=== PATIENT | female | born 1945 | race Caucasian/White ===

== ENCOUNTER → 2016-09-13 | Outpatient (CLI) | payer MEDICARE ==
[~2016-09-13] MED LIST: CALC-709 PO; DILT180C66 PO; DOCU-118 PO; ELDERBERRY PO; ESTR0.5T15 PO; FISH1CAP29 PO; HYDR-2164 PO; LEVO88TA41 PO; MULT-806 PO; OMEP20TA11 PO; POTA10CA29 PO; PROM-51 PO; PSYL0.5220 PO; SENN8.6T54 PO
== END ==
LOC: WC.BC 11:00
DX: Z12.31 Encounter for screening mammogram for malignant neoplasm of breast (principal); N64.59 Other signs and symptoms in breast
CPT/HCPCS: 77063; G0202

== ENCOUNTER 2017-06-28 22:10 | Inpatient (IN) ==
--- OUTSIDE RECORDS SUMMARY | 2017-06-28 22:18 | External Medical Summary | Continuity of Care Document ---
:1945 Author Organization [facility] Address [address] [place], [place] [id number] Phone Care Team Providers Name Role Phone Teck DO, Louis Unavailable Unavailable Allergies, Adverse Reactions, Alerts Substance Reaction Severity Status ciprofloxacin Unknown Active CIPROFLOXACIN HCL Unknown Active Penicillins Unknown Active Vovobtk-Epp-Ehe Reductase Inhibitors Unknown Active Sulfa (Sulfonamide Antibiotics) Unknown Active erythromycin base Unknown Active Tetracyclines Unknown Active Medications Medication Instructions Dosage Effective Status Comments Dates (start - stop) aspirin 81 mg take 1 tablet by 81 MG - Active tablet,delayed release oral route every day hydrochlorothiazide 25 take 1 tablet by 25 MG - Active mg tablet oral route every day FISH OIL ORAL - Active diltiazem ER (XR/XT) 180 take 1 capsule by 180 MG - Active mg capsule,extended oral route every release,controlled day Claritin 10 mg tablet take 1 tablet by 10 MG - Active oral route every day levothyroxine 88 mcg take 1 tablet by 88 MCG - Active tablet oral route every day Zantac 150 mg tablet take 1 tablet by 150 MG - Active oral route 2 times every day Vitamin D3 400 unit - Active tablet Tylenol 325 mg tablet take 1 tablet by - Active oral route every 4 hours as needed Surfak 240 mg capsule take 1 capsule by 240 MG - Active oral route every day as needed Senokot 8.6 mg tablet take 2 tablet by Not Available - Active oral route every day as needed for constipation Probiotic 10 billion - Active cell capsule potassium chloride ER 10 take 2 capsule by - Active mEq capsule,extended oral route every release day with food multivitamin tablet take 1 tablet by Not Available - Active oral route every day with food Metamucil 0.52 gram - Active capsule Problems Condition Effective Dates (start - stop) Clinical Status Encounter for other preprocedural - examination Essential (primary) hypertension Other Ovarian Cyst, Right Side Vaginal Discharge or Lesion Other Ovarian Cyst, Right Side Other Ovarian Cyst, Right Side Right lower quadrant abdominal swelling, mass and lump Hypertension - Active Arthritis Unspecified Active Diverticulitis Active GERD Active Hyperlipidemia Active Goiter Active Irritable Bowel Syndrome Active Migraines Active Endometriosis Active Procedures Procedure Date Unknown Results Test Name Date and Time Measure Units Reference Range Abnormal Flag Comments Unknown Advance Directives Directive Yes / No Effective Date File Name Unknown Encounters Encounter Practice Location Reason(s) Diagnoses Date Provider Care Team Description For Visit [facility] Right lower [place] Referring In [facility] -2016 [facility]. Provider: Arleen JAMES, abdominal [address], swelling, mass [place], [place], [place], [place], and lump [facility] [address] [id number], [place], [facility] [id number] Center tel:[phone] , [address] [address] tel:[phone] [address], [id number] [place], [address]. tel:[phone] Ivan Beck Other Ovarian Sobbing Referring In Women Cyst, Right -2016 [place]. Provider: Arleen JAMES, Side [address], Medical [place], [place], [place], Center [address] [id number], [facility] [address], tel:[phone], [place], [address] [place], [address]. [place], tel:[phone], [id number] . tel: [phone] Ivan Beck Sobbing In Women [place]. Arleen JAMES, [address], [place], [place], [place] [id number], [facility] Suite tel:[phone], [address] [place], [address], [place]. tel: [phone] Ivan Beck Other Ovarian [place] In Women Cyst, Right -2016 [place]. Arleen JAMES, Side [address], [place], [place], Center [id number], [facility] Suite tel:[phone], [address] [place], [address], . tel: [phone] Ivan Beck Encounter for Sobbing Referring In Women other -2016 [place]. Provider: Arleen JAMES, preprocedural [address], examination Medical [place], [place], Center [id number], [address], Medical Suite Center , tel:[phone], [place], [address] [place], [address]. [place], tel:[phone], [id number] [place]. tel:[phone] Associates [place] Other Ovarian Oct-20 [place] Referring In Womens Cyst, Right -2017 [place]. Provider: Health JACOB, SideVaginal [address], Discharge or Medical [place], [place], [place] Center [id number], [address], Medical Suite Center , tel:[phone], [place], [address] [place], [address]. [place], tel:[phone], [id number] [place]. tel:[phone] Ivan Beck Oct-20 [place] In Womens -2017 [place]. 700 Arleen JAMES, Medical [address], Center [place], [place], , [facility] , 120, [place], tel:[phone] [place], [id number] , [place]. tel:[phone] Ivan Beck Essential Oct-17 [place] In Womens (primary) -2017 [place]. Arleen JAMES, hypertension [address], [place], [place], Center [id number], Drive, [place] Suite tel:[phone], [address] [place], [address], [place]. tel:[phone] Family History Family Member Diagnosis Age At Onset No family history of Thyroid Disorder Father Cardiovascular Disease No family history of Osteoporosis Sister Hypertension Sister Diabetes No family history of Lung Disease Mother Stroke Father Stroke No family history of Breast Cancer No family history of Epilepsy No family history of Colon Cancer Brother Cardiovascular Disease Father Hypertension No family history of Ovarian Cancer Brother Hypertension Brother Diabetes Mother Hypertension No family history of Kidney Disease Immunizations Vaccine Date Status Comments Unknown Payers Payer name Insurance type Covered constitution party ID Authorization(s) [employer] ([employer]) Medicare ALWAYS CI [id number] PRIM Social History Type Description Quantity Date Captured Alcohol Use Details No Caffeine Use Details Unknown Tobacco Use Status Unknown Smoking Status Never smoker Vital Signs Date / Height Weight BMI Pulse Blood Temperature Respiratory Body Head BMI Time: Rate Pressure Rate Surface Circumference percentile Area Unknown Chief Complaint And Reason For Visit Unknown Chief Complaint And Reason For Visit Reason For Referral Reason For Referral Unknown Plan Of Care Date Type Action Status Unknown. Date Type Problem Goal Intervention Status Start Date Unknown. History Of Present Illness Encounter Date Complaint History Of Present Illness This patient has no known history of present illness Functional Status Encounter Date Functional Assessment Cognitive Assessment Unknown Medications Administered Medication Instructions Dosage Effective Dates (start - stop) Status Comments Drug Treatment Unknown Instructions Date Instruction Additional Information Unknown
--- NOTE | 2017-06-28 22:50 | Emergency Department Report ---
Nausea/Vomiting/Diarrhea HPI - General Chief complaint: Nausea/Vomiting/Diarrhea <Mario Harrell 06/29/17 00:57> Stated complaint: Nausea <Mario Harrell 06/29/17 00:57> Time Seen by Provider: 06/28/17 22:25 <Mario Harrell 06/29/17 00:57> Source: patient <HarryKandace Marcela Orr 06/28/17 22:51> Mode of arrival: ambulatory <Kandace Mcdonald 06/28/17 22:51> Limitations: no limitations <Kandace Mcdonald 06/28/17 22:51> - History of Present Illness HPI Narrative: Pt presents with a complaint of nausea since her release from the hospital 3 days ago. Pt Had an ovary removed 5 days ago and was released from the hospital 3 days ago. Pt reports she had a small runny BM 3 days ago and started vomiting today. She c/o being bloated with a decreased appetite and took a promethazine today without relief. Pt is concerned she may be dehydrated and came to the ER. <Kandace Mcdonald 06/28/17 22:51> MD complaint: nausea, vomiting <Kandace Mcdonald 06/28/17 22:51> Onset (ago): day(s) <Kandace Mcdonald 06/28/17 22:51> Description of Vomiting: watery, bilious <Kandace Mcdonald 06/28/17 22:51> Description of Diarrhea: water <Kandace Mcdonald 06/28/17 22:51> Location of pain: diffuse <Kandace Mcdonald 06/28/17 22:51> Severity: mild <Kandace Mcdonald 06/28/17 22:51> Quality: cramping <Kandace Mcdonald 06/28/17 22:51> Relieving factors: none <Kandace Mcdonald 06/28/17 22:51> Exacerbating factors: eating <Kandace Mcdonald 06/28/17 22:51> Associated symptoms: denies other symptoms <Kandace Mcdonald 06/28/17 22: 51> - Related Data Home Medications Medication Instructions Recorded Confirmed Levothyroxine Sodium 88 mcg PO ACB #0 04/13/13 06/28/17 dilTIAZem HCl [Cardizem Cd] 180 mg PO HS #0 04/13/13 06/28/17 hydroCHLOROthiazide 25 mg PO DAILY #0 04/13/13 06/28/17 [Hydrochlorothiazide] Cholecalciferol (Vitamin D3) 1,000 units PO DAILY 12/08/16 06/28/17 [Vitamin D3] Loratadine [Claritin] 10 mg PO ACB 12/08/16 06/28/17 Multi-Vitamin Plain [Theragran] 1 tab PO DAILY 12/08/16 06/28/17 Gibson-3/Dha/Epa/Fish Oil [Fish Oil 1 each PO DAILY 12/08/16 06/28/17 1,000 mg Softgel] Potassium Chloride 2 tab PO TID 12/08/16 06/28/17 raNITIdine HCl [Zantac 75] 150 mg PO DAILY 12/08/16 06/28/17 Acetaminophen [Tylenol] 500 mg PO PRN PRN 05/24/17 06/28/17 Aspirin [Adult Aspirin Regimen] 81 mg PO DAILY 06/28/17 06/28/17 Lactobacillus Acidophilus 1 each PO DAILY 06/28/17 06/28/17 [Probiotic] Oxycodone HCl 5 - 10 mg PO Q4H 06/28/17 06/28/17 Promethazine HCl 25 mg PO PRN PRN 06/28/17 06/28/17 Previous Rx's Medication Instructions Recorded Ibuprofen [Motrin] 1 tab PO Q4H PRN #30 tab 05/24/17 <aMrio Harrell 06/29/17 00:57> Allergies Allergy/AdvReac Type Severity Reaction Status Date / Time ciprofloxacin Allergy RASH Verified 06/28/17 22:34 Penicillins Allergy RASH Verified 06/28/17 22:34 Jaiadlw-Rgs-Bxz Reductase Allergy MUSCLE Verified 06/28/17 22:34 Inhibitor FATIGUE Sulfa (Sulfonamide Allergy RASH Verified 06/28/17 22:34 Antibiotics) tetracycline Allergy RASH Verified 06/28/17 22:34 <Mario Harrell 06/29/17 00:57> Review of Systems All systems: reviewed and negative except as stated <Kandace Mcdonald 03/07 22:51> Constitutional: Reports: as per HPI <Kandace Mcdonald 06/28/17 22:51> Gastrointestinal: Reports: as per HPI <Kandace Mcdonald 06/28/17 22:51> Musculoskeletal: Reports: as per HPI <Kandace Mcdonald 06/28/17 22:51> [facility] Patient Stated Medical History Migraine Yes Cataracts Yes Macular Degeneration Yes Hypertension Yes Sleep Apnea No Gastroesophageal Reflux Yes: controlled with meds Disease Hiatal Hernia Yes Hx Incontinence Yes: STRESS Osteoarthritis Yes Anesthesia Reactions No Blood Transfusions No Chemotherapy No Malignant Hyperthermia No Other No Endometriosis Yes Ovarian Cysts Yes Now No <Julio CesarMario Carlos - 06/29/17 00:57> - Social History Smoking status: Never smoker <Kandace Mcdonald 06/28/17 22:51> Physical Exam - Limitations Limitations: no limitations <Kandace Mcdonald 06/28/17 22:51> - General General appearance: alert, in no apparent distress <Kandace Mcdonald 06/28 22:51> - Normal Exams: Head:: Normocephalic without trauma <Kandace Mcdonald 06/28/17 22:51> Chest/Respirations:: Clear all hernandez, with good airflow <Kandace Mcdonald 06/28/17 22:51> Cardiovascular:: Regular rate and rhythm, without murmur or gallop, Pulses 2+ all extremities, capillary refill, <2 seconds all extremities <Kandace Mcdonald 06/28/17 22:51> Musculoskeletal:: No tenderness, or deformity noted, good range of motion, all extremities <Kandace Mcdonald 06/28/17 22:51> Integumentary:: No rashes <Kandace Mcdonald 06/28/17 22:51> Neurological:: Patient is alert, and oriented, cranial nerves, motor/sensory/ cerebellar, exams w/o gross deficits, to observation <Kandace Mcdonald 03/07 22:51> Psychiatric:: Patient exhibits, appropriate attention, emotion and affect < Kandace Mcdonald 06/28/17 22:51> - Abdominal Exam Abdominal exam: Present: distention, tenderness, hypoactive bowel sounds < Kandace Mcdonald - 06/28/17 22:51> Course Vital Signs Temperature 97.7 F 06/28/17 22:15 Pulse Rate 95 06/28/17 22:15 Respiratory Rate 16 06/28/17 22:15 Blood Pressure 159/91 H 06/28/17 22:15 Pulse Oximetry 97 06/28/17 22:15 Temperature 97.7 F 06/28/17 22:15 Pulse Rate 86 06/29/17 00:30 Respiratory Rate 16 06/28/17 22:15 Blood Pressure 143/76 H 06/29/17 00:30 Pulse Oximetry 92 06/29/17 00:30 <Mario Harrell - 06/29/17 00:57> Vital Signs Temperature 97.7 F 06/28/17 22:15 Pulse Rate 95 06/28/17 22:15 Respiratory Rate 16 06/28/17 22:15 Blood Pressure 159/91 H 06/28/17 22:15 Pulse Oximetry 97 06/28/17 22:15 Temperature 97.7 F 06/28/17 22:15 Pulse Rate 86 06/29/17 00:30 Respiratory Rate 16 06/28/17 22:15 Blood Pressure 143/76 H 06/29/17 00:30 Pulse Oximetry 92 06/29/17 00:30 <Kandace Mcdonald 06/28/17 23:49> Nausea/Vomiting/Diarrhea - MDM Narrative Medical decision making narrative: Given normal saline bolus. CBC CMP ordered. White count slightly elevated at 12 with 82% neutrophils. Hematocrit was appropriate. CMP was appropriate. CT abdomen was obtained and showed a 6 x 4 x 4.5 cm pelvic hematoma with "ileus versus evolving distal small bowel obstruction". I spoke with Dr. Hopper who agreed to accept admission of the patient for observation. She'll be placed on surgical unit. Nothing by mouth. IV of normal saline at 100 ml/hr with morphine and Zofran when necessary. I discussed this with the patient and with her . They're both aware. <Mario Harrell 06/29/17 00:57> - Differential Diagnosis Likely: traveler's diarrhea, food poisoning, gastroenteritis, dehydration (ileus , constipation) <Kandace Mcdonald 06/28/17 22:51> - Medical Records Attestation: I reviewed the patient's medical records. <Mario Harrell Carlos - 06/29 00:57> - Lab Data Attestation: I reviewed the patient's lab results. <Mario Harrell Carlos - 06/29/17 00:57> Result diagrams: 06/28/17 23:00 06/28/17 23:00 <Mario Harrell - 06/29/17 00:57> Lab Results 06/28/17 06/28/17 06/29/17 Range/Units 23:00 23:00 00:00 WBC 13.2 H (4.5-11.0) T/MM3 RBC 4.79 (4.00-5.20) M/MM3 Hgb 15.0 (12-16) GM/DL Hct 43.2 (36-46) % MCV 90.2 (80-100) UM3 MCH 31.3 (26-34) UUG MCHC 34.7 (31-37) GM/DL RDW Std Deviation 41.3 (36.9-50.2) FL Plt Count 246 (130-400) T/MM3 MPV 11.3 (9.4-12.4) UM3 Immature Gran % (Auto) 0.8 H (0.0-0.5) % Neut % (Auto) 81.2 H (33-66) % Lymph % (Auto) 10.1 L (23-45) % Mccormick % (Auto) 5.0 (0-9.0) % Eos % (Auto) 2.6 (0-4) % Baso % (Auto) 0.3 (0-2) % Neut # (Auto) 10.7 H (1.8-7.7) T/MM3 Lymph # (Auto) 1.3 (1-4.8) T/MM3 Mccormick # (Auto) 0.7 (0-0.8) T/MM3 Eos # (Auto) 0.3 (0-0.5) T/MM3 Baso # (Auto) 0.0 (0-0.2) T/MM3 Abs Immat Gran (auto) 0.11 H (0.00-0.03) T/MM3 Turbidity < 20 (0-20) Sodium 135 (134-144) MEQ/L Potassium 4.3 (3.6-5) MEQ/L Chloride 98 (98-107) MEQ/L Carbon Dioxide 24 (22-30) MEQ/L Anion Gap 13 (5-15) MEQ/L BUN 10.0 (7-17) MG/DL Creatinine 0.6 L (0.7-1.2) MG/DL GFR Calculation 98 BUN/Creatinine Ratio 17 (6-26) RATIO Glucose 159 H (65-110) MG/DL Calculated Osmolality 262 (261-280) MOSM/KG Calcium 9.4 (8.4-10.2) MG/DL Total Bilirubin 1.00 (0.20-1.30) MG/DL Icterus Index < 2 (0-7) AST 50 H (14-36) U/L ALT 41 (9-52) U/L Alkaline Phosphatase 81 (38-126) U/L Total Protein 7.8 (6.3-8.2) G/DL Albumin 4.4 (3.5-5.0) G/DL Globulin 3.4 (2.4-3.6) G/DL Albumin/Globulin Ratio 1.3 (1.1-2.2) RATIO Specimen Hemolysis 68 H (0-25) Ur Collection Type Urine, clean catch Urine Color Yellow (YELLOW) Urine Clarity Clear Urine pH 7.0 (5.0-8.0) Ur Specific [place] 1.010 L (1.015-1.025) Urine Protein 2+ A (NEGATIVE) Urine Glucose (UA) Negative (NEGATIVE) Urine Ketones 2+ A (NEGATIVE) Urine Occult Blood Trace-intact (NEGATIVE) Urine Nitrate Negative (NEGATIVE) Urine Bilirubin 1+ A (NEGATIVE) Urine Urobilinogen 0.2 (NORMAL) EU/DL Ur Leukocyte Esterase Negative (NEGATIVE) Urine RBC 0-1 (0-3) /HPF Urine WBC 1-3 (0-5) /HPF Amorphous Sediment Few Urine Bacteria None seen (NEGATIVE) Ur Culture Indicated? Cult not indicated <Mario Harrell E - 06/29/17 00:57> Lab Results 06/28/17 06/28/17 06/29/17 Range/Units 23:00 23:00 00:00 WBC 13.2 H (4.5-11.0) T/MM3 RBC 4.79 (4.00-5.20) M/MM3 Hgb 15.0 (12-16) GM/DL Hct 43.2 (36-46) % MCV 90.2 (80-100) UM3 MCH 31.3 (26-34) UUG MCHC 34.7 (31-37) GM/DL RDW Std Deviation 41.3 (36.9-50.2) FL Plt Count 246 (130-400) T/MM3 MPV 11.3 (9.4-12.4) UM3 Immature Gran % (Auto) 0.8 H (0.0-0.5) % Neut % (Auto) 81.2 H (33-66) % Lymph % (Auto) 10.1 L (23-45) % Mccormick % (Auto) 5.0 (0-9.0) % Eos % (Auto) 2.6 (0-4) % Baso % (Auto) 0.3 (0-2) % Neut # (Auto) 10.7 H (1.8-7.7) T/MM3 Lymph # (Auto) 1.3 (1-4.8) T/MM3 Mccormick # (Auto) 0.7 (0-0.8) T/MM3 Eos # (Auto) 0.3 (0-0.5) T/MM3 Baso # (Auto) 0.0 (0-0.2) T/MM3 Abs Immat Gran (auto) 0.11 H (0.00-0.03) T/MM3 Turbidity < 20 (0-20) Sodium 135 (134-144) MEQ/L Potassium 4.3 (3.6-5) MEQ/L Chloride 98 (98-107) MEQ/L Carbon Dioxide 24 (22-30) MEQ/L Anion Gap 13 (5-15) MEQ/L BUN 10.0 (7-17) MG/DL Creatinine 0.6 L (0.7-1.2) MG/DL GFR Calculation 98 BUN/Creatinine Ratio 17 (6-26) RATIO Glucose 159 H (65-110) MG/DL Calculated Osmolality 262 (261-280) MOSM/KG Calcium 9.4 (8.4-10.2) MG/DL Total Bilirubin 1.00 (0.20-1.30) MG/DL Icterus Index < 2 (0-7) AST 50 H (14-36) U/L ALT 41 (9-52) U/L Alkaline Phosphatase 81 (38-126) U/L Total Protein 7.8 (6.3-8.2) G/DL Albumin 4.4 (3.5-5.0) G/DL Globulin 3.4 (2.4-3.6) G/DL Albumin/Globulin Ratio 1.3 (1.1-2.2) RATIO Specimen Hemolysis 68 H (0-25) Ur Collection Type Urine, clean catch Urine Color Yellow (YELLOW) Urine Clarity Clear Urine pH 7.0 (5.0-8.0) Ur Specific [place] 1.010 L (1.015-1.025) Urine Protein 2+ A (NEGATIVE) Urine Glucose (UA) Negative (NEGATIVE) Urine Ketones 2+ A (NEGATIVE) Urine Occult Blood Trace-intact (NEGATIVE) Urine Nitrate Negative (NEGATIVE) Urine Bilirubin 1+ A (NEGATIVE) Urine Urobilinogen 0.2 (NORMAL) EU/DL Ur Leukocyte Esterase Negative (NEGATIVE) Urine RBC 0-1 (0-3) /HPF Urine WBC 1-3 (0-5) /HPF Amorphous Sediment Few Urine Bacteria None seen (NEGATIVE) Ur Culture Indicated? Cult not indicated <Kandace Mcdonald - 06/28/17 23:49> - Radiology Data Attestation: I reviewed the patient's radiology results. <Mario Harrell 04/06 00:57> Disposition Clinical Impression: Postoperative ileus <Mario Harrell 06/29/17 00:57> Disposition: 02 To [facility] <Mario Harrell 06/29/17 00:57> Condition: Stable <Mario Harrell 06/29/17 00:57> Instructions: <Mario Harrell 06/29/17 00:57> Prescriptions: No Action dilTIAZem HCl [Cardizem Cd] 180 mg PO HS #0 hydroCHLOROthiazide [Hydrochlorothiazide] 25 mg PO DAILY #0 raNITIdine HCl [Zantac 75] 150 mg PO DAILY Cholecalciferol (Vitamin D3) [Vitamin D3] 1,000 units PO DAILY Potassium Chloride 2 tab PO TID Ibuprofen [Motrin] 1 tab PO Q4H PRN #30 tab PRN Reason: Pain Aspirin [Adult Aspirin Regimen] 81 mg PO DAILY Oxycodone HCl 5 - 10 mg PO Q4H Levothyroxine Sodium 88 mcg PO ACB #0 Loratadine [Claritin] 10 mg PO ACB Gibson-3/Dha/Epa/Fish Oil [Fish Oil 1,000 mg Softgel] 1 each PO DAILY Multi-Vitamin Plain [Theragran] 1 tab PO DAILY Acetaminophen [Tylenol] 500 mg PO PRN PRN PRN Reason: Pain Lactobacillus Acidophilus [Probiotic] 1 each PO DAILY Promethazine HCl 25 mg PO PRN PRN PRN Reason: Nausea &/Or Vomiting <Mario Harrell 06/29/17 00:57> Referrals: Louis Garcia DO [Family Provider] - <Mario Harrell 06/29/17 00: 57> Forms: <Mario Harrell 06/29/17 00:57> Time of Disposition: 00:57 <Mario Harrell 06/29/17 00:57> - Seen By: physician <Mario Harrell 06/29/17 00:57>
[2017-06-28] MEDS: SALINE FLUSH 10ml SYRINGE IVF PRN (23:07)
[2017-06-28] MEDS ORDERED: IOHEXOL 300mg/ml 100ml INJECTION ONE (23:30)
[2017-06-28] MEDS ORDERED: SALINE FLUSH 10ml SYRINGE ONE (23:30)
[2017-06-28] MEDS ORDERED: NS 100 ML ONE (23:30)
[2017-06-29] MEDS ORDERED: MORPHINE SULFATE 2mg INJECTION IVP PRN (00:52)
[2017-06-29] MEDS: NS 1,000 ML IV SCH ×3 (02:02→23:32)
[2017-06-29] MEDS: SALINE FLUSH 10ml SYRINGE IVF PRN (02:02)
[2017-06-29] MEDS: ONDANSETRON 4 MG/2 ML INJECTION IVP PRN ×3 (02:05→21:47)
--- NOTE | 2017-06-29 07:57 | CT Scan Report ---
Indication: abd bloating, no BM, post op nausea vomiting PROCEDURE: CT abdomen pelvis w con: Encounter: Initial Comparison: None Technique: Axial CT images were performed through the abdomen and pelvis after the administration of intravenous contrast. Coronal and sagittal two-dimensional reformats. Automated Exposure Control and Iterative Reconstruction dose reducing techniques were utilized. Contrast: Omnipaque 300 89.1 mL Findings: Atelectasis in both lung bases. Small probable cysts in the left and right lobes of the liver. No enhancing liver mass or bile duct dilatation. The gallbladder is surgically absent. The spleen, pancreas, adrenal glands and kidneys are within normal limits. The stomach and small bowel are fluid-filled and distended. No adenopathy. Surgical staple line seen in the lower abdomen and pelvis midline. There is small amount of free pelvic fluid. The colon is decompressed distally. Terminal ileum and several small bowel loops are decompressed in the pelvis which appears to be the site of transition. There is a swirling appearance of the mesenteric vessels seen on the coronal plane images. No pneumatosis identified. Bone windows show no acute findings. There is a 5 to 6 cm phlegmonous collection of fluid and gas in the pelvis possibly related to the recent surgery. A few tiny foci of free air in the pelvis probably related to the surgery. Impression: 1. Acute high-grade or complete small bowel obstruction with a swirling appearance to the mesentery suggesting internal hernia or volvulus. Emergent surgical consultation is recommended. 2. Phlegmon versus hematoma versus developing abscess in the deep pelvis. There is a preliminary report by [facility]. .
--- NOTE | 2017-06-29 10:42 | OB/GYN Progress Note ---
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 Voiding: voiding Nausea or Vomiting: No Ambulating: Yes Subjective Comments: Patient was admitted overnight for nausea and possible ileus vs early bowel obstruction. Her last BM was 3 days ago, but she's passing flatus. - Objective Vital Signs: Vital Signs Temp 97.9 F 06/29/17 08:35 Pulse 87 06/29/17 08:35 Resp 18 06/29/17 08:35 BP 134/78 06/29/17 08:35 Pulse Ox 95 06/29/17 08:35 Urine Output: good General: alert and oriented Abdomen: non-tender, soft, non-distended Abdomen: Bowel sounds present. Incision: normal, clean, dry, intact Incision: [place] and ecchymosis present. Extremities: non-tender Laboratory Results: 06/28/17 23:00 06/28/17 23:00 Labs: UA Ur Collection Type Urine, clean catch 06/29/17 00:00 Urine Color Yellow (YELLOW) 06/29/17 00:00 Urine pH 7.0 (5.0-8.0) 06/29/17 00:00 Ur Specific [place] 1.010 (1.015-1.025) L 06/29/17 00:00 Urine Protein 2+ (NEGATIVE) A 06/29/17 00:00 Urine Glucose (UA) Negative (NEGATIVE) 06/29/17 00:00 Urine Ketones 2+ (NEGATIVE) A 06/29/17 00:00 Urine Occult Blood Trace-intact (NEGATIVE) 06/29/17 00:00 Urine Nitrate Negative (NEGATIVE) 06/29/17 00:00 Urine Bilirubin 1+ (NEGATIVE) A 06/29/17 00:00 Urine Urobilinogen 0.2 EU/DL (NORMAL) 06/29/17 00:00 Ur Leukocyte Esterase Negative (NEGATIVE) 06/29/17 00:00 - Assessment and Plan s/p Laparotomy for RSO and lysis of dense bowel adhesions. Her CT this AM was read as an acute bowel obstruction with possible volvulus and possible abscess. Clinically, she does not fit this picture. She is afebile , abdomen is nondistended with bowel sounds, and she's passing flatus. I called and spoke with Dr. Shin. He agreed that we should start with clear liquids today.
[2017-06-29] MEDS ORDERED: METOCLOPRAMIDE 10mg/2ml INJECTION IVP PRN (23:47)
[2017-06-30] MEDS: NS 1,000 ML IV SCH ×2 (09:59→23:15)
--- NOTE | 2017-06-30 10:55 | OB/GYN Progress Note ---
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 Had a BM x 2 since in hospital very small. Pt is very anxious about current condition. - Objective Vital signs: Temperature 96.4 F L 06/30/17 07:24 Pulse Rate 91 06/30/17 07:24 Respiratory Rate 16 06/30/17 07:24 Blood Pressure 147/85 H 06/30/17 07:24 Pulse Oximetry 94 06/30/17 07:24 Urine Output: good General: alert and oriented Cardiovascular: regular rate,rhythm Respiratory: non-labored Respiratory Auscultation: clear bilaterally Abdomen: non-tender, distended Abdomen: Bowel sounds present but slow, No high pitch sounds Incision: normal Extremities: non-tender Laboratory Result: 06/28/17 23:00 06/28/17 23:00 Labs: UA Ur Collection Type Urine, clean catch 06/29/17 00:00 Urine Color Yellow (YELLOW) 06/29/17 00:00 Urine pH 7.0 (5.0-8.0) 06/29/17 00:00 Ur Specific [place] 1.010 (1.015-1.025) L 06/29/17 00:00 Urine Protein 2+ (NEGATIVE) A 06/29/17 00:00 Urine Glucose (UA) Negative (NEGATIVE) 06/29/17 00:00 Urine Ketones 2+ (NEGATIVE) A 06/29/17 00:00 Urine Occult Blood Trace-intact (NEGATIVE) 06/29/17 00:00 Urine Nitrate Negative (NEGATIVE) 06/29/17 00:00 Urine Bilirubin 1+ (NEGATIVE) A 06/29/17 00:00 Urine Urobilinogen 0.2 EU/DL (NORMAL) 06/29/17 00:00 Ur Leukocyte Esterase Negative (NEGATIVE) 06/29/17 00:00 - Assessment and Plan (1) Postoperative ileus Assessment and Plan: Minimal Improvement since admission. Will repeat Lab CBC and CMP today(WBC and LFT elevated). Discordant report from [facility] and and in house radiology report Ileus vs Early Small bowel obstruction compared to High grade small bowel obstruction. Will get general surgery consult secondary to pt anxiety and slow improvement. Clinical suspicion is for Ileus and not bowel obstruction.
[2017-06-30] MEDS: LEVOTHYROXINE 88 MCG TABLET PO SCH (11:05)
--- NOTE | 2017-06-30 12:33 | XRay Report ---
Indication: ileus versus SBO PROCEDURE: XR abdomen 2V: Encounter: Initial Comparison: CT dated June 28, 2017 Findings: Small bowel dilatation has improved from the comparison study with multiple air-fluid levels remaining. Small bowel loops are mildly enlarged up to 4.3 cm in diameter. Colonic gas is decreased overall from the medical photographer image of the comparison CT. No free air. Surgical skin joel again noted. Impression: Interval decrease in distention of small bowel could represent an improving partial obstruction. .
[2017-06-30] MEDS: ONDANSETRON 4 MG/2 ML INJECTION IVP PRN ×3 (12:36→20:44)
--- NOTE | 2017-06-30 13:20 | Consultation ---
DATE OF CONSULTATION 06/30/2017 FINDINGS Mrs. Douglass is a pleasant 71-year-old female whom I was asked to see today as a new patient/consultation as a result of her history for nausea, vomiting, abdominal distention, and probable ileus which she had developed following exploratory laparotomy and oophorectomy. Patient states that about a week ago she had undergone exploratory laparotomy with lysis of adhesions and oophorectomy at [facility] in [place] by Dr. Shin. Patient states that she did stay in the hospital for a couple of days and was subsequently discharged. Patient states that unfortunately shortly after her discharge she began to notice that her "belly was swelling." She denied much in the way of any element of significant abdominal pain or discomfort but stated that she did become nauseated in nature. Patient states that she then began to experience a fair amount of emesis. She presented to our ER facility and was subsequently admitted to our hospital for further care as a result of a suspected ileus. Patient states that she continues to be somewhat nauseated. She states that she continues intermittently to "spit up bile-like material." She, however, denies significant emesis like she had initially. Additionally, upon questioning the patient she denies any element of significant abdominal pain. PAST MEDICAL HISTORY, PAST SURGICAL HISTORY, MEDICATIONS, ALLERGIES, SOCIAL HISTORY, FAMILY HISTORY, REVIEW OF SYSTEMS Performed by my nurse practitioner, Carlos Shannon APRN. PHYSICAL EXAM GENERAL: Mrs. Douglass is a 71-year-old female who this morning did not appear to be in acute distress. VITAL SIGNS: Temperature 96.4, pulse 91, respirations 16, blood pressure 147/85, SAO2 94% on room air. HEENT: Normocephalic. Pupils are equally round and react to light and accommodation. NECK: Supple without lymphadenopathy. CHEST: Clear to auscultation bilaterally. HEART: Regular rate and rhythm. Normal S1 and S2 without gallops, murmurs or clicks. ABDOMEN: Visualization of the abdomen does reveal a prior midline incision containing joel from the umbilicus down to the suprapubic region. There is a component of some ecchymosis present along the incision mostly within the suprapubic region. There is no evidence for erythema or drainage from her prior midline incision. Additionally, upon visualization her abdomen it does appear somewhat distended. Palpation of the abdomen reveals the abdomen to be somewhat firm. However, there is no evidence for guarding or rebound. Patient did not display any element of tenderness upon palpation. EXTREMITIES: Without clubbing, cyanosis, or edema. NEURO: Cranial nerves II-XII grossly intact. Patient is without focal motor or sensory deficits. LABORATORY/RADIOGRAPHIC EVALUATION The patient had a CBC on June 28 and her white count was slightly elevated at that time at 13.2. Hemoglobin is normal at 15.0. CMP was obtained and found to be essentially within normal limits. AST was elevated slightly at 50. Glucose was slightly elevated at 159. The patient did have a CT scan of her abdomen and pelvis upon admission. One can see fairly dilated loops of small bowel. Colon contained some air but did not appear significantly dilated in nature. There was a component of some inflammatory changes noted within the pelvis most likely a result of her prior surgery. Findings were consistent with that of an acute high-grade or complete small bowel obstruction with "swirling appearance" of the mesentery suggesting internal hernia or volvulus. ASSESSMENT 71-year-old female one week status post exploratory laparotomy, lysis of adhesions, oophorectomy. Patient with likely postop ileus. Patient does not have an acute surgical abdomen noted upon physical examination. PLAN Will go ahead and repeat KUB and upright today. Will repeat lab today to make sure the patient does not have increasing leukocytosis. Will evaluate her lab and radiographic results. May proceed later today with Gastrografin small bowel follow-through to rule out complete small bowel obstruction with more certainty. Will continue to follow along closely in the patient's care. KINSEY
--- NOTE | 2017-06-30 15:45 | General Surgery Consult Note ---
Consult date: 06/30/17 Attending Physician: Saulo Hopper DO Reason for consult: abdominal pain PFSH HTN GERD Hiatal Hernia Mcular Degeneration Endometriosis Right ovarian cyst Surgical History: laparoscopy lysis of adhesions and RSO 06/2017 Family History: non-contributory - Social History Smoking status: Never smoker Alcohol intake frequency: does not drink Medications Home Medications Medication Instructions Recorded Confirmed Type Levothyroxine Sodium 88 mcg PO ACB #0 04/13/13 06/28/17 History dilTIAZem HCl [Cardizem Cd] 180 mg PO HS #0 04/13/13 06/28/17 History hydroCHLOROthiazide 25 mg PO DAILY #0 04/13/13 06/28/17 History [Hydrochlorothiazide] Cholecalciferol (Vitamin D3) 1,000 units PO DAILY 12/08/16 06/28/17 History [Vitamin D3] Loratadine [Claritin] 10 mg PO ACB 12/08/16 06/28/17 History Multi-Vitamin Plain [Theragran] 1 tab PO DAILY 12/08/16 06/28/17 History [place]-3/Dha/Epa/Fish Oil [Fish Oil 1 each PO DAILY 12/08/16 06/28/17 History 1,000 mg Softgel] Potassium Chloride 2 tab PO TID 12/08/16 06/28/17 History raNITIdine HCl [Zantac 75] 150 mg PO DAILY 12/08/16 06/28/17 History Acetaminophen [Tylenol] 500 mg PO PRN PRN 05/24/17 06/28/17 History Aspirin [Adult Aspirin Regimen] 81 mg PO DAILY 06/28/17 06/28/17 History Lactobacillus Acidophilus 1 each PO DAILY 06/28/17 06/28/17 History [Probiotic] Oxycodone HCl 5 - 10 mg PO Q4H 06/28/17 06/28/17 History Promethazine HCl 25 mg PO PRN PRN 06/28/17 06/28/17 History Allergies Allergy/AdvReac Type Severity Reaction Status Date / Time ciprofloxacin Allergy RASH Verified 06/28/17 22:34 Penicillins Allergy RASH Verified 06/28/17 22:34 Bagqcpo-Zeh-Alv Reductase Allergy MUSCLE Verified 06/28/17 22:34 Inhibitor FATIGUE Sulfa (Sulfonamide Allergy RASH Verified 06/28/17 22:34 Antibiotics) tetracycline Allergy RASH Verified 06/28/17 22:34 Review of Systems 10-point ROS: negative except for HPI and the following: - Gastrointestinal Gastrointestinal: Present: nausea, diarrhea - Genitourinary Genitourinary: Present: other (stress incontinence) - Vital Signs Last Vital Signs Temp 95.9 F L 06/30/17 15:06 Pulse 90 06/30/17 15:06 Resp 16 06/30/17 15:06 BP 155/94 H 06/30/17 15:06 Pulse Ox 96 06/30/17 15:06 - Laboratory Result Diagrams: 06/30/17 11:27 06/30/17 11:27 General Surgery Results - Results Labs: 06/30/17 11:27 06/30/17 11:27 Hospital Course Summary Disclaimer: The visit summary below is not to be considered part of the above Progress Note.
[2017-06-30] MEDS: BISACODYL 10 MG SUPPOSITORY RECTALLY SCH (16:40)
[2017-06-30] MEDS: LIDOCAINE 1% INJ 10 MG, POTASSIUM CHLORIDE INJ 10 MEQ in NS 100 ML IV SCH ×4 (16:40→22:00)
[2017-07-01] MEDS: NS 1,000 ML IV SCH (02:15)
[2017-07-01] MEDS: ONDANSETRON 4 MG/2 ML INJECTION IVP PRN ×2 (02:16→07:50)
[2017-07-01] MEDS: BISACODYL 10 MG SUPPOSITORY RECTALLY SCH ×5 (02:18→23:55)
[2017-07-01] MEDS: LEVOTHYROXINE 88 MCG TABLET PO SCH (05:49)
[2017-07-01] MEDS: POTASSIUM CHLORIDE INJ 40 MEQ in NS 1,000 ML IV SCH ×3 (06:40→22:17)
--- NOTE | 2017-07-01 08:46 | XRay Report ---
Indication: ileus f/u PROCEDURE: XR abdomen 2V: Encounter: Initial Comparison: June 30, 2017 Findings: No free air identified. Mild to moderately dilated small bowel loops with nondifferential air-fluid levels again seen with scattered colonic gas. The overall degree of bowel distention is minimally improved. Impression: Slight interval improvement in the bowel gas pattern. .
--- NOTE | 2017-07-01 12:13 | OB/GYN Progress Note ---
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 Reports no pain, Continued Nausea with emesis of Bile. No tolerating clear liquids well. - Objective Vital signs: Temperature 96.4 F L 07/01/17 07:00 Pulse Rate 90 07/01/17 07:00 Respiratory Rate 16 07/01/17 07:00 Blood Pressure 149/89 H 07/01/17 07:00 Pulse Oximetry 94 07/01/17 07:00 General: alert and oriented Cardiovascular: regular rate,rhythm Respiratory: non-labored Respiratory Auscultation: clear bilaterally Abdomen: non-tender, non-distended Incision: normal, dry, intact Extremities: non-tender Laboratory Result: 07/01/17 04:14 07/01/17 11:57 Labs: UA Ur Collection Type Urine, clean catch 06/29/17 00:00 Urine Color Yellow (YELLOW) 06/29/17 00:00 Urine pH 7.0 (5.0-8.0) 06/29/17 00:00 Ur Specific [place] 1.010 (1.015-1.025) L 06/29/17 00:00 Urine Protein 2+ (NEGATIVE) A 06/29/17 00:00 Urine Glucose (UA) Negative (NEGATIVE) 06/29/17 00:00 Urine Ketones 2+ (NEGATIVE) A 06/29/17 00:00 Urine Occult Blood Trace-intact (NEGATIVE) 06/29/17 00:00 Urine Nitrate Negative (NEGATIVE) 06/29/17 00:00 Urine Bilirubin 1+ (NEGATIVE) A 06/29/17 00:00 Urine Urobilinogen 0.2 EU/DL (NORMAL) 06/29/17 00:00 Ur Leukocyte Esterase Negative (NEGATIVE) 06/29/17 00:00 - Assessment and Plan (1) Postoperative ileus Assessment and Plan: Interval improvement in Post operative Ileus. Appreciate Gen Surg consult and recs, Contiue with clears liquids and slow advancement of diet. Non Surgical abdomen at this time. (2) Hypokalemia Assessment and Plan: Replaced yesterday and improved to 3.5
[2017-07-01] MEDS ORDERED: DIATRIZOATE MEGLUMINE/SOD. (66%/10%) 120ml SOLN ONE (12:47)
[2017-07-01] MEDS: LIDOCAINE 1% INJ 10 MG, POTASSIUM CHLORIDE INJ 10 MEQ in NS 100 ML IV SCH ×5 (14:38→18:11)
--- NOTE | 2017-07-01 17:57 | Progress Note ---
DATE OF SERVICE 07/01/2017 FINDINGS Mrs. Douglass is a 70-year-old female whom I saw earlier today on afternoon rounds. The patient denied any element of severe abdominal pain. She states that she was, however, continuing to "spit up bile." She states that she had a few "very small bowel movements." Patient states that she "feels about the same." ] EXAM VITAL SIGNS: Afebrile, normotensive. Current vitals include temperature 96.2, pulse 96, respirations 16, blood pressure 166/90, SAO2 93% on room air. HEENT: Normocephalic. Pupils are equally round and react to light and accommodation. CHEST: Clear to auscultation bilaterally. HEART: Regular rate and rhythm. Normal S1 and S2 without gallops, murmurs or clicks. ABDOMEN: Visualization of the abdomen does reveal it to be somewhat more distended in its overall appearance today. Palpation of the abdomen, however, reveals it to be soft and completely nontender. There was no evidence for guarding or rebound. LABORATORY/RADIOGRAPHIC EVALUATION The patient had a CBC today and her white count remains stable at 7.6. Hemoglobin is stable at 13.8. The patient had a repeat BMP this morning and her potassium was 3.5. Given her hypokalemia, magnesium was checked and found to be normal at 2.2. Radiographically, the patient had a KUB and upright obtained earlier today. The patient remained to have mildly to moderately dilated small bowel loops with scattered colonic gas. Overall, the degree of bowel distention and was "minimally improved." ASSESSMENT 71-year-old female status post exploratory laparotomy, lysis of adhesions, oophorectomy. Patient with development of postoperative ileus versus small-bowel obstruction. PLAN Would like to go ahead today and obtain a Gastrografin small bowel follow- through to rule in or rule out with more certainty a potential small bowel obstruction. Patient from a clinical standpoint remains to be without an acute surgical abdomen. I have reviewed the small bowel series and it does appear the contrast is progressing quite slowly this evening. Will go ahead and obtain a repeat KUB and upright tomorrow. Hopefully the contrast will eventually make it into her colon. If the patient begins to develop significant nausea or vomiting, may need to proceed with placement of NG tube. Will continue to follow the patient closely. Dr. McConeghey will be covering from a general surgical standpoint over the course of the weekend. Will discuss case with him. KINSEY
[2017-07-02] MEDS: BISACODYL 10 MG SUPPOSITORY RECTALLY SCH ×4 (00:06→23:00)
[2017-07-02] MEDS: POTASSIUM CHLORIDE INJ 40 MEQ in NS 1,000 ML IV SCH ×5 (04:16→22:08)
[2017-07-02] MEDS: LEVOTHYROXINE 88 MCG TABLET PO SCH (06:14)
--- NOTE | 2017-07-02 07:16 | OB/GYN Progress Note ---
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 Feeling better less bloated, decreased Nausea - Objective Vital signs: Temperature 96.8 F 07/02/17 00:01 Pulse Rate 94 07/02/17 00:01 Respiratory Rate 18 07/02/17 00:01 Blood Pressure 152/95 H 07/02/17 00:01 Pulse Oximetry 92 07/02/17 00:01 General: alert and oriented Cardiovascular: regular rate,rhythm Respiratory: non-labored Respiratory Auscultation: clear bilaterally Abdomen: non-tender, non-distended Incision: normal, dry, intact Extremities: non-tender Laboratory Result: 07/02/17 04:36 07/02/17 04:36 Labs: UA Ur Collection Type Urine, clean catch 06/29/17 00:00 Urine Color Yellow (YELLOW) 06/29/17 00:00 Urine pH 7.0 (5.0-8.0) 06/29/17 00:00 Ur Specific [place] 1.010 (1.015-1.025) L 06/29/17 00:00 Urine Protein 2+ (NEGATIVE) A 06/29/17 00:00 Urine Glucose (UA) Negative (NEGATIVE) 06/29/17 00:00 Urine Ketones 2+ (NEGATIVE) A 06/29/17 00:00 Urine Occult Blood Trace-intact (NEGATIVE) 06/29/17 00:00 Urine Nitrate Negative (NEGATIVE) 06/29/17 00:00 Urine Bilirubin 1+ (NEGATIVE) A 06/29/17 00:00 Urine Urobilinogen 0.2 EU/DL (NORMAL) 06/29/17 00:00 Ur Leukocyte Esterase Negative (NEGATIVE) 06/29/17 00:00 - Assessment and Plan (1) Postoperative ileus Assessment and Plan: Headed for repeat X ray this am. Await Gen surg thoughts on Ileus vs SBO, pt appears to be improving slowly. Appreciate consult. (2) Hypokalemia Assessment and Plan: Resolved.
--- NOTE | 2017-07-02 12:29 | XRay Report ---
Indication: ileus vs. SBO PROCEDURE: XR small bowel follow through: Encounter: Initial Comparison: Abdominal radiographs from earlier today Findings: Water-soluble contrast was administered orally followed by serial abdominal radiographs. This demonstrates slow progression through proximal dilated small bowel with minimal forward progress after approximately 30 minutes. Contrast was followed for a total of seven hours and 20 minutes with no contrast seen in the distal small bowel or colon with a significant amount of contrast remaining in the stomach. The colon is relatively decompressed. Small bowel remains dilated up to 6.2 cm in diameter. Impression: No colonic contrast after seven hours of administration consistent with a very high-grade or complete small bowel obstruction. .
--- NOTE | 2017-07-02 13:09 | Progress Note ---
DATE 07/02/2017 HISTORY The patient is tolerating a clear liquid diet at this time. She is having no nausea or vomiting. The patient states that she is not having any abdominal pain. The patient did have a bowel movement during the night. She has had three more bowel movements since 9 a.m. this morning. She is asking about the advancement of her diet to a full liquid diet. PHYSICAL EXAMINATION VITAL SIGNS: Temperature is 96.8 degrees Fahrenheit oral. Pulse is 88. Respiratory rate is 18. Blood pressure is 154/88. Oxygen saturation is 96% on room air. ABDOMEN: The abdomen is soft and nontender at this time. LABORATORY DATA White blood cell count is 7300. Hemoglobin is 12.8. Hematocrit is 37.8. Serum sodium is 140. Serum potassium is 3.6. Serum creatinine is 0.9. IMAGING DATA The patient did have KUB and upright abdominal x-rays performed this morning. Most of the oral contrast from the small bowel x-ray series is all in the colon at this time. The patient does still have dilated small bowel loops and the patient does still have air-fluid levels on the upright abdominal x-rays. IMPRESSION Slowly resolving postoperative ileus following recent exploratory laparotomy, lysis of adhesions and oophorectomy operation. RECOMMENDATION Continue current medical treatment. Continue to monitor response to treatment with KUB and upright abdominal x-rays. No indication for any operative intervention at this time. MTDD
[2017-07-02] MEDS: ONDANSETRON 4 MG/2 ML INJECTION IVP PRN ×2 (22:11)
[2017-07-03] MEDS: ONDANSETRON 4 MG/2 ML INJECTION IVP PRN ×2 (02:31→19:59)
[2017-07-03] MEDS: POTASSIUM CHLORIDE INJ 40 MEQ in NS 1,000 ML IV SCH ×2 (04:41→16:09)
[2017-07-03] MEDS: LEVOTHYROXINE 88 MCG TABLET PO SCH (05:31)
--- NOTE | 2017-07-03 10:15 | XRay Report ---
Indication: possible SBO PROCEDURE: XR abdomen 2V: Encounter: Initial Comparison: Small bowel series dated July 01, 2017 Findings: Contrast material has traversed into the colon where it is seen diffusely extending to the level of the rectum. There are continued small bowel air-fluid levels present in dilated loops of small bowel measuring up to 5 cm in diameter. No free air. Impression: Interval traversal of of contrast material throughout the colon excluding a complete small bowel obstruction. Findings could be due to high-grade partial obstruction or atypical ileus pattern. .
--- NOTE | 2017-07-03 10:17 | XRay Report ---
Indication: ileus PROCEDURE: XR abdomen 2V: Encounter: Initial Comparison: July 02, 2017 Findings: Persistent contrast material seen throughout the colon with small bowel air-fluid levels remaining. The degree of small bowel distention is similar to the prior exam. Impression: Persistent colonic contrast material and findings possibly representing a small bowel ileus. .
[2017-07-03] MEDS: BISACODYL 10 MG SUPPOSITORY RECTALLY SCH ×2 (11:42→17:06)
--- NOTE | 2017-07-03 11:42 | OB/GYN Progress Note ---
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 - Subjective Today's Date: 07/03/17 - Objective Vital signs: Temperature 96.2 F L 07/03/17 08:18 Pulse Rate 91 07/03/17 08:18 Respiratory Rate 16 07/03/17 08:18 Blood Pressure 158/90 H 07/03/17 08:18 Pulse Oximetry 95 07/03/17 08:18 General: alert and oriented Cardiovascular: regular rate,rhythm Respiratory: non-labored Respiratory Auscultation: clear bilaterally Abdomen: non-tender, distended Incision: normal, dry, intact Extremities: non-tender Edema: none Laboratory Result: 07/02/17 04:36 07/02/17 04:36 Labs: UA Ur Collection Type Urine, clean catch 06/29/17 00:00 Urine Color Yellow (YELLOW) 06/29/17 00:00 Urine pH 7.0 (5.0-8.0) 06/29/17 00:00 Ur Specific [place] 1.010 (1.015-1.025) L 06/29/17 00:00 Urine Protein 2+ (NEGATIVE) A 06/29/17 00:00 Urine Glucose (UA) Negative (NEGATIVE) 06/29/17 00:00 Urine Ketones 2+ (NEGATIVE) A 06/29/17 00:00 Urine Occult Blood Trace-intact (NEGATIVE) 06/29/17 00:00 Urine Nitrate Negative (NEGATIVE) 06/29/17 00:00 Urine Bilirubin 1+ (NEGATIVE) A 06/29/17 00:00 Urine Urobilinogen 0.2 EU/DL (NORMAL) 06/29/17 00:00 Ur Leukocyte Esterase Negative (NEGATIVE) 06/29/17 00:00 - Assessment and Plan (1) Postoperative ileus Assessment and Plan: continued with minimal relief in symptoms. Not able to tolerate much, has not attempted Clear liquids other than water. Imaging X ray this am showed continued Ileus with contrast material in bowel. Has been 5 days since oral intake. Will discuss with Gen surg. Possible TPN/PPN. Would require PIC line wo will discuss with Gen Surgery first.
[2017-07-03] MEDS ORDERED: PPN - PHARMACY CONSULT MC ONE (11:48)
[2017-07-03] MEDS ORDERED: FAT EMULSION 20% 500 ML BAG IV SCH (12:00)
--- NOTE | 2017-07-03 13:18 | Pharmacy Consult-TPN/PPN ---
Pharmacy Consult-TPN/PPN - Laboratory Information Chemistry Turbidity < 20 (0-20) 07/02/17 04:36 Sodium 140 MEQ/L (134-144) 07/02/17 04:36 Potassium 3.6 MEQ/L (3.6-5) 07/02/17 04:36 Chloride 108 MEQ/L (98-107) H D 07/02/17 04:36 Carbon Dioxide 23 MEQ/L (22-30) 07/02/17 04:36 Anion Gap 9 MEQ/L (5-15) 07/02/17 04:36 BUN 21.0 MG/DL (7-17) H 07/02/17 04:36 Creatinine 0.5 MG/DL (0.7-1.2) L 07/02/17 04:36 GFR Calculation 121 07/02/17 04:36 BUN/Creatinine Ratio 42 RATIO (6-26) H 07/02/17 04:36 Glucose 100 MG/DL (65-110) 07/02/17 04:36 Calculated Osmolality 272 MOSM/KG (261-280) 07/02/17 04:36 Calcium 7.6 MG/DL (8.4-10.2) L 07/02/17 04:36 Magnesium 2.2 MG/DL (1.6-2.3) 07/01/17 04:14 Total Bilirubin 0.80 MG/DL (0.20-1.30) 06/30/17 11:27 Conjugated Bilirubin 0.00 MG/DL (0.00-0.30) 06/30/17 11:27 Unconjugated Bilirubin 0.40 MG/DL (0.00-1.1) 06/30/17 11:27 Icterus Index < 2 (0-7) 07/02/17 04:36 AST 34 U/L (14-36) 06/30/17 11:27 ALT 44 U/L (9-52) 06/30/17 11:27 Alkaline Phosphatase 74 U/L (38-126) 06/30/17 11:27 Total Protein 7.0 G/DL (6.3-8.2) 06/30/17 11:27 Albumin 4.0 G/DL (3.5-5.0) 06/30/17 11:27 Globulin 3.0 G/DL (2.4-3.6) 06/30/17 11:27 Albumin/Globulin Ratio 1.3 RATIO (1.1-2.2) 06/30/17 11:27 Specimen Hemolysis < 15 (0-25) 07/02/17 04:36 Intake and Output 07/02/17 07/03/17 07/04/17 06:59 06:59 06:59 Intake Total 1420.000 / 3423.511 6697.667 / 4076.667 Output Total 775 / 775 1250 / 1250 300 / 300 Balance 645.000 / 502.345 3711.667 / 2826.667 -300 / -300 Weight 71.1 kg 71.8 kg Intake: IV 1420.000 / 9476.676 2706.667 / 2956.667 Lidocaine 1% Inj 10 mg 400 / 400 Potassium Chloride Inj 10 meq In Ns 100 ml @ 100 mls/hr IV . Q1H JAKE Rx#:[id number] Potassium Chloride Inj 40 meq 1020.000 / 8345.561 1102.667 / 2956.667 In Ns 1,000 ml @ 100 mls/hr IV .[id number] JAKE Rx#:[id number] Oral 1120 / 1120 Output: Urine 775 / 775 1250 / 1250 300 / 300 Other: Urine Appearance Clear Clear Clear Urine Color Yellow Yellow Dark Yellow Urine Odor Normal Normal Stool Characteristics Mucoid Stool Color Brown Brown Brown Green Stool Consistency Loose Formed Formed Size of Bowel Movement Moderate Moderate Small # Bowel Movements 1 # Incontinent Bowel Movements 1 - Consult Information PPN consult noted by Dr Hopper for Ms Douglass, who is 71 years old and weighs 71.8kg. She has not been able to eat. She has no central venous access but has a peripheral line. Will begin PPN with lipids to run at 100 mls/hr which will supply ~ 1400 kcal/day. Will monitor electrolytes as well. Thank you.
[2017-07-03] MEDS: MULTI-VIT INFUSION 10 ML, MULTI-TRACE ELEMENTS 1 ML in PPN - STANDARD FORMULA 2,000 ML IV SCH (16:50)
[2017-07-03] MEDS: FAT EMULSION 20% 500 ML IV SCH (20:05)
[2017-07-04] MEDS: BISACODYL 10 MG SUPPOSITORY RECTALLY SCH ×3 (00:15→17:58)
[2017-07-04] MEDS: LEVOTHYROXINE 88 MCG TABLET PO SCH (05:33)
--- NOTE | 2017-07-04 06:48 | Progress Note ---
DATE OF VISIT 07/03/2017 REASON FOR VISIT Covering surgical care for Dr. Leon. SUBJECTIVE Lazaro is doing fairly well this afternoon. She does report continued abdominal bloating, but she denies any significant abdominal pain. She has not had any appetite and is barely drinking anything on her full liquid diet. She has ambulated a little. She has had about five tiny amounts of stool throughout the day. EXAM VITAL SIGNS: Afebrile with stable vitals on room air. GENERAL: The patient is awake, alert, in no acute distress. ABDOMEN: Soft, distended in the upper abdomen. Her lower midline incision is healing well with no evidence of infection. Her abdomen is nontender. IMAGING KUB and upright from today showed persistent colonic contrast material and some ongoing air-fluid levels. IMPRESSION 1. Ongoing postoperative ileus following recent exploratory laparotomy. 2. Status post exploratory laparotomy, lysis of adhesions, oophorectomy. PLAN 1. I encouraged Lazaro to drink some more of her full liquids to try to stimulate bowel function. 2. I also encouraged ambulation. 3. I do think this will be self-limited since contrast has flowed through to the colon. 4. I think parenteral nutrition would be reasonable given her very limited oral intake. MTDD
--- NOTE | 2017-07-04 09:21 | OB/GYN Progress Note ---
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 - Subjective Today's Date: 07/04/17 - Objective Vital signs: Temperature 99.2 F 07/04/17 08:00 Pulse Rate 98 07/04/17 08:00 Respiratory Rate 16 07/04/17 08:00 Blood Pressure 149/89 H 07/04/17 08:00 Pulse Oximetry 90 07/04/17 08:00 General: alert and oriented Cardiovascular: regular rate,rhythm Respiratory: non-labored Respiratory Auscultation: clear bilaterally Abdomen: non-tender, distended Incision: normal, dry, intact Extremities: non-tender Edema: none Laboratory Result: 07/02/17 04:36 07/02/17 04:36 Labs: UA Ur Collection Type Urine, clean catch 06/29/17 00:00 Urine Color Yellow (YELLOW) 06/29/17 00:00 Urine pH 7.0 (5.0-8.0) 06/29/17 00:00 Ur Specific [place] 1.010 (1.015-1.025) L 06/29/17 00:00 Urine Protein 2+ (NEGATIVE) A 06/29/17 00:00 Urine Glucose (UA) Negative (NEGATIVE) 06/29/17 00:00 Urine Ketones 2+ (NEGATIVE) A 06/29/17 00:00 Urine Occult Blood Trace-intact (NEGATIVE) 06/29/17 00:00 Urine Nitrate Negative (NEGATIVE) 06/29/17 00:00 Urine Bilirubin 1+ (NEGATIVE) A 06/29/17 00:00 Urine Urobilinogen 0.2 EU/DL (NORMAL) 06/29/17 00:00 Ur Leukocyte Esterase Negative (NEGATIVE) 06/29/17 00:00 - Assessment and Plan (1) Postoperative ileus Assessment and Plan: Minimal Oral intake, started on PPN yesterday, Continues to have some Bloat, states Nausea is improving. Continues with small BM. Encourage ambulation, Chewing gum, Clear liquids to stimulate bowel.
--- NOTE | 2017-07-04 11:13 | Pharmacy Consult-TPN/PPN ---
Pharmacy Consult-TPN/PPN - Laboratory Information Chemistry Turbidity < 20 (0-20) 07/04/17 09:36 Sodium 133 MEQ/L (134-144) L D 07/04/17 09:36 Potassium 3.0 MEQ/L (3.6-5) L 07/04/17 09:36 Chloride 96 MEQ/L (98-107) L D 07/04/17 09:36 Carbon Dioxide 26 MEQ/L (22-30) 07/04/17 09:36 Anion Gap 11 MEQ/L (5-15) 07/04/17 09:36 BUN 19.0 MG/DL (7-17) H 07/04/17 09:36 Creatinine 0.5 MG/DL (0.7-1.2) L 07/04/17 09:36 GFR Calculation 121 07/04/17 09:36 BUN/Creatinine Ratio 38 RATIO (6-26) H 07/04/17 09:36 Glucose 118 MG/DL (65-110) H 07/04/17 09:36 Glucometer 150 mg/dL (65-110) 07/04/17 05:51 Calculated Osmolality 259 MOSM/KG (261-280) L 07/04/17 09:36 Calcium 8.3 MG/DL (8.4-10.2) L D 07/04/17 09:36 Magnesium 2.2 MG/DL (1.6-2.3) 07/01/17 04:14 Total Bilirubin 0.80 MG/DL (0.20-1.30) 06/30/17 11:27 Conjugated Bilirubin 0.00 MG/DL (0.00-0.30) 06/30/17 11:27 Unconjugated Bilirubin 0.40 MG/DL (0.00-1.1) 06/30/17 11:27 Icterus Index < 2 (0-7) 07/04/17 09:36 AST 34 U/L (14-36) 06/30/17 11:27 ALT 44 U/L (9-52) 06/30/17 11:27 Alkaline Phosphatase 74 U/L (38-126) 06/30/17 11:27 Total Protein 7.0 G/DL (6.3-8.2) 06/30/17 11:27 Albumin 4.0 G/DL (3.5-5.0) 06/30/17 11:27 Globulin 3.0 G/DL (2.4-3.6) 06/30/17 11:27 Albumin/Globulin Ratio 1.3 RATIO (1.1-2.2) 06/30/17 11:27 Specimen Hemolysis 19 (0-25) 07/04/17 09:36 Intake and Output 07/03/17 07/04/17 07/05/17 06:59 06:59 06:59 Intake Total 4076.667 / 4076.667 1720 / 1720 Output Total 1250 / 1250 900 / 900 Balance 2826.667 / 2826.667 820 / 820 Weight 71.1 kg 71.8 kg 72.9 kg Intake: IV 2956.667 / 2956.667 1520 / 1520 Fat Emulsion 20% 500 ml @ 50 500 / 500 mls/hr IV 1600 [facility] Rx#: [id number] Potassium Chloride Inj 40 meq 2956.667 / 2956.667 1020 / 1020 In Ns 1,000 ml @ 100 mls/hr IV .[id number] [facility] Rx#:[id number] Oral 1120 / 1120 200 / 200 Output: Urine 1250 / 1250 900 / 900 Other: Urine Appearance Clear Clear Urine Color Yellow Yellow Urine Odor Normal Normal Stool Characteristics Mucoid Stool Color Brown Brown Stool Consistency Formed Formed Emesis Description Bile Size of Bowel Movement Moderate Small # Bowel Movements 1 # Unmeasured Emesis Episodes 1 - Consult Information We will continue PPN at 100mL per hour with the additional 40mEq of NaCl and 40mEq of KCl. We will order a BMP for 07/05/2017 to follow both potassium and sodium serum levels. Thanks
[2017-07-04] MEDS ORDERED: MULTI-VIT INFUSION 10 ML, MULTI-TRACE ELEMENTS 1 ML, SODIUM CHLORIDE CONC 40 MEQ, POTA... IV SCH (13:01)
[2017-07-04] MEDS: MULTI-VIT INFUSION 10 ML, MULTI-TRACE ELEMENTS 1 ML in PPN - STANDARD FORMULA 2,000 ML IV SCH (13:51)
[2017-07-04] MEDS: FAT EMULSION 20% 500 ML IV SCH (17:50)
[2017-07-04] MEDS: ONDANSETRON 4 MG/2 ML INJECTION IVP PRN (20:05)
[2017-07-05] MEDS: SORE THROAT SPRAY 20ml PO PRN ×4 (01:39→22:16)
[2017-07-05] MEDS: LEVOTHYROXINE 88 MCG TABLET PO SCH (06:31)
[2017-07-05] MEDS: BISACODYL 10 MG SUPPOSITORY RECTALLY SCH ×4 (07:44→23:49)
--- NOTE | 2017-07-05 08:38 | Pharmacy Consult-TPN/PPN ---
Pharmacy Consult-TPN/PPN - Laboratory Information Chemistry Turbidity 50 (0-20) H 07/05/17 03:58 Sodium 131 MEQ/L (134-144) L 07/05/17 03:58 Potassium 3.5 MEQ/L (3.6-5) L 07/05/17 03:58 Chloride 99 MEQ/L (98-107) 07/05/17 03:58 Carbon Dioxide 22 MEQ/L (22-30) 07/05/17 03:58 Anion Gap 10 MEQ/L (5-15) 07/05/17 03:58 BUN 24.0 MG/DL (7-17) H 07/05/17 03:58 Creatinine 0.4 MG/DL (0.7-1.2) L 07/05/17 03:58 GFR Calculation 156 07/05/17 03:58 BUN/Creatinine Ratio 60 RATIO (6-26) H 07/05/17 03:58 Glucose 141 MG/DL (65-110) H 07/05/17 03:58 Glucometer 123 mg/dL (65-110) 07/04/17 18:18 Calculated Osmolality 259 MOSM/KG (261-280) L 07/05/17 03:58 Calcium 7.6 MG/DL (8.4-10.2) L D 07/05/17 03:58 Magnesium 2.2 MG/DL (1.6-2.3) 07/01/17 04:14 Total Bilirubin 0.80 MG/DL (0.20-1.30) 06/30/17 11:27 Conjugated Bilirubin 0.00 MG/DL (0.00-0.30) 06/30/17 11:27 Unconjugated Bilirubin 0.40 MG/DL (0.00-1.1) 06/30/17 11:27 Icterus Index < 2 (0-7) 07/05/17 03:58 AST 34 U/L (14-36) 06/30/17 11:27 ALT 44 U/L (9-52) 06/30/17 11:27 Alkaline Phosphatase 74 U/L (38-126) 06/30/17 11:27 Total Protein 7.0 G/DL (6.3-8.2) 06/30/17 11:27 Albumin 4.0 G/DL (3.5-5.0) 06/30/17 11:27 Globulin 3.0 G/DL (2.4-3.6) 06/30/17 11:27 Albumin/Globulin Ratio 1.3 RATIO (1.1-2.2) 06/30/17 11:27 Specimen Hemolysis 82 (0-25) H 07/05/17 03:58 Intake and Output 07/04/17 07/05/17 07/06/17 06:59 06:59 06:59 Intake Total 1720 / 1720 2468.333 / 2468.333 Output Total 900 / 900 2700 / 2700 725 / 725 Balance 820 / 820 -231.667 / -231.667 -725 / -725 Weight 71.8 kg 72.9 kg 70.6 kg Intake: IV 1520 / 1520 2468.333 / 2468.333 Fat Emulsion 20% 500 ml @ 50 500 / 500 500 / 500 mls/hr IV 1600 [facility] Rx#: [id number] Multi-Vit Infusion 10 ml Multi 1967.333 / 1967.333 -Trace Elements 1 ml In Ppn - Standard Formula 2,000 ml @ 100 mls/hr IV .[id number] [facility] Rx#: [id number] Potassium Chloride Inj 40 meq 1020 / 1020 In Ns 1,000 ml @ 100 mls/hr IV .[id number] [facility] Rx#:[id number] Oral 200 / 200 Output: Urine 900 / 900 Emesis 700 / 700 Gastric Drainage 1999 725 / 725 Right Nare 1999 725 / 725 Other: Urine Appearance Clear Clear Urine Color Yellow Yellow Urine Odor Normal Stool Color Brown Brown Stool Consistency Formed Loose Emesis Description Bile Size of Bowel Movement Small Small # Voids 1 1 # Bowel Movements 1 # Unmeasured Emesis Episodes 1 - Consult Information We will add 80mEq of NaCl to each PPN bag starting with next bag because serum sodium decreased to 131 with serum osmolality remaining the same at 259. Serum potassium has increased to 3.5 from 3.0 yesterday so we will continue the same amount of potassium chloride in PPN formula. Thanks
[2017-07-05] MEDS ORDERED: MULTI VIT INFUSION IV SCH ×2 (08:45→16:00)
[2017-07-05] MEDS ORDERED: MULTI TRACE ELEMENTS IV SCH (08:45)
[2017-07-05] MEDS ORDERED: SODIUM CHLORIDE IV SCH ×2 (08:45→16:00)
[2017-07-05] MEDS ORDERED: [UNRECOGNIZED DRUG - OTHER] IV SCH (08:45)
--- NOTE | 2017-07-05 11:00 | OB/GYN Progress Note ---
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 Is ambulating well. Tolerating PPN - Objective Vital signs: Temperature 99.3 F 07/05/17 07:41 Pulse Rate 98 07/05/17 07:41 Respiratory Rate 16 07/05/17 07:41 Blood Pressure 145/88 H 07/05/17 07:41 Pulse Oximetry 92 07/05/17 07:41 General: alert and oriented Cardiovascular: regular rate,rhythm Respiratory: non-labored Respiratory Auscultation: clear bilaterally Abdomen: non-tender, distended Incision: normal, dry, intact Extremities: non-tender Edema: none Laboratory Result: 07/02/17 04:36 07/05/17 03:58 Labs: UA Ur Collection Type Urine, clean catch 06/29/17 00:00 Urine Color Yellow (YELLOW) 06/29/17 00:00 Urine pH 7.0 (5.0-8.0) 06/29/17 00:00 Ur Specific [place] 1.010 (1.015-1.025) L 06/29/17 00:00 Urine Protein 2+ (NEGATIVE) A 06/29/17 00:00 Urine Glucose (UA) Negative (NEGATIVE) 06/29/17 00:00 Urine Ketones 2+ (NEGATIVE) A 06/29/17 00:00 Urine Occult Blood Trace-intact (NEGATIVE) 06/29/17 00:00 Urine Nitrate Negative (NEGATIVE) 06/29/17 00:00 Urine Bilirubin 1+ (NEGATIVE) A 06/29/17 00:00 Urine Urobilinogen 0.2 EU/DL (NORMAL) 06/29/17 00:00 Ur Leukocyte Esterase Negative (NEGATIVE) 06/29/17 00:00 Additional Findings: NG tube with upwards of 3500cc out since placement, has slowed originally 700cc emesis with 2000cc out - Assessment and Plan (1) Postoperative ileus Assessment and Plan: Continue with NG and NPO for now, will discuss case with Gen Surg. Continue PPN.
[2017-07-05] MEDS ORDERED: TPN - PHARMACY CONSULT MC ONE (11:15)
[2017-07-05] MEDS ORDERED: POTASSIUM CHLORIDE IV SCH (16:00)
[2017-07-05] MEDS ORDERED: [UNRECOGNIZED DRUG - OTHER] IV SCH (16:00)
[2017-07-05] MEDS: FAT EMULSION 20% 100 ML IV SCH (16:26)
[2017-07-05] MEDS: NS IV SCH ×2 (18:29→22:16)
[2017-07-05] MEDS: ERYTHROMYCIN IV SCH ×2 (18:29→22:16)
[2017-07-05] MEDS: NS FLUSH BAG 500ml IV PRN (18:29)
--- NOTE | 2017-07-05 18:52 | Progress Note ---
DATE OF SERVICE 07/05/2017 FINDINGS Mrs. Douglass this evening was without complaints. The patient states that she did begin to develop increasing abdominal distention yesterday associated with nausea and vomiting. A nasogastric tube was subsequently placed. The patient states that he is feeling significantly better today in comparison to yesterday. EXAM VITAL SIGNS: Temperature 97.5, pulse 78, respirations 18, blood pressure 142/79 , SAO2 94% on room air. HEENT: Normocephalic. Pupils are equally round and react to light and accommodation. CHEST: Clear to auscultation bilaterally. HEART: Regular rate and rhythm. Normal S1 and S2 without gallops, murmurs or clicks. ABDOMEN: Visualization of the abdomen does reveal it to be slightly distended. Palpation of the abdomen, however, reveals it be soft and completely nontender throughout. There is no element of guarding or rebound. LABORATORY Lab work was obtained today consisting of a BMP. No marked electrolyte abnormalities were noted. Sodium was slightly low at 131. Potassium was slightly low at 3.5. ASSESSMENT 71-year-old female with prolonged ileus following status post exploratory laparotomy, extensive adhesiolysis, oophorectomy. Patient remains to be without an acute surgical abdomen. PLAN I did speak with Dr. 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 It was my recommendation that we go ahead and place a PICC line and begin TPN given her prolonged ileus. I do not feel that we are dealing with a complete small bowel obstruction given the fact that her Gastrografin small bowel follow-through did progress through her small bowel and through her entire colon, ruling out a complete obstruction. From a physical examination standpoint she does not have increasing abdominal pain to suggest an underlying "surgical process." It would be my recommendation that we continue with NG suction, serial abdominal examinations, and hyperalimentation. Will go ahead and place the patient on IV erythromycin which may potentiate recovery/ resolution of her postop ileus. Will go ahead and repeat KUB and upright tomorrow. Will repeat CBC to make sure the patient is not developing underlying leukocytosis. Will continue to follow the patient closely. KINSEY
[2017-07-06] MEDS: SORE THROAT SPRAY 20ml PO PRN ×3 (02:49→14:31)
[2017-07-06] MEDS: ERYTHROMYCIN IV SCH ×4 (02:49→20:19)
[2017-07-06] MEDS: NS IV SCH ×4 (02:49→20:19)
[2017-07-06] MEDS: LEVOTHYROXINE 88 MCG TABLET PO SCH (06:08)
--- NOTE | 2017-07-06 08:10 | XRay Report ---
Indication: ileus vs sbo PROCEDURE: XR abdomen 2V: Encounter: Initial Comparison: July 03, 2017 Findings: Nasogastric tube in place with the tip projecting over the pyloric region of the stomach. Mild left basilar atelectasis. The prior administered contrast material is still present within the colon. Dilated loops of small bowel remain of 24.2 cm in diameter. Surgical skin joel again noted. No free air appreciated. Impression: Continued small bowel dilatation that could represent an atypical ileus without involvement of the colon or a partial small bowel obstruction. .
[2017-07-06] MEDS: BISACODYL 10 MG SUPPOSITORY RECTALLY SCH ×3 (08:26→23:28)
[2017-07-06] MEDS: REFRESH CELLUVISC 1% Eye Drops 0.4ml EACH EYE PRN ×2 (10:40→20:20)
--- NOTE | 2017-07-06 11:44 | Pharmacy Consult-TPN/PPN ---
Pharmacy Consult-TPN/PPN - Laboratory Information Chemistry Turbidity < 20 (0-20) 07/06/17 04:34 Sodium 139 MEQ/L (134-144) D 07/06/17 04:34 Potassium 3.4 MEQ/L (3.6-5) L 07/06/17 04:34 Chloride 103 MEQ/L (98-107) 07/06/17 04:34 Carbon Dioxide 28 MEQ/L (22-30) 07/06/17 04:34 Anion Gap 8 MEQ/L (5-15) 07/06/17 04:34 BUN 20.0 MG/DL (7-17) H 07/06/17 04:34 Creatinine 0.5 MG/DL (0.7-1.2) L 07/06/17 04:34 GFR Calculation 121 07/06/17 04:34 BUN/Creatinine Ratio 40 RATIO (6-26) H 07/06/17 04:34 Glucose 140 MG/DL (65-110) H 07/06/17 04:34 Glucometer 175 mg/dL (65-110) 07/06/17 03:25 Calculated Osmolality 273 MOSM/KG (261-280) 07/06/17 04:34 Calcium 7.7 MG/DL (8.4-10.2) L 07/06/17 04:34 Phosphorus 3.1 MG/DL (2.5-4.5) 07/06/17 04:34 Magnesium 2.3 MG/DL (1.6-2.3) 07/06/17 04:34 Total Bilirubin 0.80 MG/DL (0.20-1.30) 06/30/17 11:27 Conjugated Bilirubin 0.00 MG/DL (0.00-0.30) 06/30/17 11:27 Unconjugated Bilirubin 0.40 MG/DL (0.00-1.1) 06/30/17 11:27 Icterus Index < 2 (0-7) 07/06/17 04:34 AST 34 U/L (14-36) 06/30/17 11:27 ALT 44 U/L (9-52) 06/30/17 11:27 Alkaline Phosphatase 74 U/L (38-126) 06/30/17 11:27 Total Protein 7.0 G/DL (6.3-8.2) 06/30/17 11:27 Albumin 4.0 G/DL (3.5-5.0) 06/30/17 11:27 Globulin 3.0 G/DL (2.4-3.6) 06/30/17 11:27 Albumin/Globulin Ratio 1.3 RATIO (1.1-2.2) 06/30/17 11:27 Specimen Hemolysis < 15 (0-25) 07/06/17 04:34 - Consult Information I changed the tpn formula to: Amino Acids 8.5% 1000 mL Dextrose 50% 1000 mL Standard in Bag Electrolytes: Conc: Total/bag: Sodium 35 mEq/L 70 mEq Potassium 30 mEq/L 60 mEq Magnesium 5 mEq/L 10 mEq Calcium 4.5 mEq/L 9 mEq Acetate 70 mEq/L 140 mEq Chloride 39 mEq/L 78 mEq Phosphate 15 mmol/L 30 mmol Additional items: Sodium Chloride 80 mEq Potassium Chloride 60 mEq (up from 40 mEq) Multiple Vitamin Infusion 10 mLs Multiple Trace Elements 1 mL because the serum potassium was low. The Pharmacy will continue to monitor the patient and the patient's electrolytes and adjust the TPN accordingly. Thanks for the TPN Consult, Morgan Winn, Pharmacist.
--- NOTE | 2017-07-06 12:41 | OB/GYN Progress Note ---
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 Would like joel out. - Objective Vital signs: Temperature 99.9 F 07/06/17 07:00 Pulse Rate 86 07/06/17 07:00 Respiratory Rate 20 07/06/17 07:00 Blood Pressure 146/83 H 07/06/17 07:00 Pulse Oximetry 95 07/06/17 07:00 General: alert and oriented Cardiovascular: regular rate,rhythm Respiratory: non-labored Respiratory Auscultation: clear bilaterally Abdomen: non-tender, non-distended, distended Incision: normal, dry, intact Benge intact Extremities: non-tender Edema: none Laboratory Result: 07/06/17 04:34 07/06/17 04:34 Labs: UA Ur Collection Type Urine, clean catch 06/29/17 00:00 Urine Color Yellow (YELLOW) 06/29/17 00:00 Urine pH 7.0 (5.0-8.0) 06/29/17 00:00 Ur Specific [place] 1.010 (1.015-1.025) L 06/29/17 00:00 Urine Protein 2+ (NEGATIVE) A 06/29/17 00:00 Urine Glucose (UA) Negative (NEGATIVE) 06/29/17 00:00 Urine Ketones 2+ (NEGATIVE) A 06/29/17 00:00 Urine Occult Blood Trace-intact (NEGATIVE) 06/29/17 00:00 Urine Nitrate Negative (NEGATIVE) 06/29/17 00:00 Urine Bilirubin 1+ (NEGATIVE) A 06/29/17 00:00 Urine Urobilinogen 0.2 EU/DL (NORMAL) 06/29/17 00:00 Ur Leukocyte Esterase Negative (NEGATIVE) 06/29/17 00:00 - Assessment and Plan (2) Postoperative ileus Comment: Clear liquids today. NG still productive, cont per protocol. Rec joel at least through 14 days post op due to poor nutritional status. Q&A
[2017-07-06 13:39] VITALS: BMI 28.7
--- NOTE | 2017-07-06 15:31 | Progress Note ---
DATE OF SERVICE 07/06/2017 FINDINGS Mrs. Douglass was seen earlier this morning on rounds. The patient informs me that after receiving the "antibiotics" she has been experiencing some crampy abdominal discomfort followed by loose stools. The patient stated this morning she had an "accident in her shorts". EXAM VITAL SIGNS: Temperature 99.9, pulse 86, respirations 20, blood pressure 146/83 , SAO2 95% on room air. CHEST: Clear to auscultation bilaterally. HEART: Regular rate and rhythm. Normal S1 and S2 without gallops, murmurs or clicks. ABDOMEN: Visualization of the abdomen reveals it to be less distended today. Palpation of the abdomen reveals it to be soft and completely nontender. No evidence for guarding or rebound. LABORATORY/RADIOGRAPHIC EVALUATION The patient had a CBC today and her white count is stable at 4.8. Hemoglobin is stable at 13.2. CMP was obtained and found to be essentially within normal limits. Potassium is slightly low at 3.4. Radiographically, we had ordered a KUB and upright for this morning. This was completed last evening. Findings revealed that of continued small bowel dilatation that could represent an atypical ileus "without involvement of colon or perhaps a partial small-bowel obstruction." One can still see a fair amount of residual contrast outlining her colon from her prior small bowel follow- through. ASSESSMENT 71-year-old female status post exploratory laparotomy, extensive adhesiolysis, oophorectomy, development of postoperative ileus. The patient remains to be without acute surgical abdomen/process. PLAN The patient, as stated above, remains to be without an apparent acute surgical process. She does not have any element of leukocytosis. She is not tachycardic. She is not having any element of increasing abdominal pain. It is encouraging that the patient is beginning to have some loose stools. Will go ahead and clamp NG and begin some clear liquids today. Will repeat films tomorrow. If the patient tolerates clear liquids without recurrent nausea and vomiting and her radiographs appear improved tomorrow, will likely try to DC her NG tomorrow. Otherwise, will continue with current care at this time. KINSEY
[2017-07-06] MEDS: FAT EMULSION 20% 100 ML IV SCH (16:25)
[2017-07-06] MEDS: SODIUM CHLORIDE IV SCH (16:26)
[2017-07-06] MEDS: MULTI VIT INFUSION IV SCH (16:26)
[2017-07-06] MEDS: [UNRECOGNIZED DRUG - OTHER] IV SCH (16:26)
[2017-07-06] MEDS: POTASSIUM CHLORIDE IV SCH (16:26)
[2017-07-06] MEDS: NS FLUSH BAG 500ml IV PRN (20:19)
[2017-07-07] MEDS: NS IV SCH ×4 (03:38→21:18)
[2017-07-07] MEDS: ERYTHROMYCIN IV SCH ×4 (03:38→21:18)
[2017-07-07] MEDS: LEVOTHYROXINE 88 MCG TABLET PO SCH (06:03)
[2017-07-07] MEDS: BISACODYL 10 MG SUPPOSITORY RECTALLY SCH ×3 (07:31→23:44)
--- NOTE | 2017-07-07 08:17 | General Surgery Progress Note ---
Subjective Patient reports: no new complaints, tolerating liquids well (clears), flatus ( small amount, states "little toots" occasionally), no bowel movement Narrative: Denies nausea, on clear liquids. NG remains in place. KUB shows a distended stomach, Dr. Leon feels we should leave the NG in and clamped at this time , since she is asymptomatic regarding bloating and nausea. She is "burping" some. - Vital Signs Last Vital Signs Temp 99.3 F 07/07/17 03:57 Pulse 109 H 07/06/17 23:30 Resp 20 07/06/17 23:30 BP 142/80 H 07/06/17 23:30 Pulse Ox 109 H 07/06/17 23:30 - Laboratory Result Diagrams: 07/07/17 04:09 07/06/17 04:34 - Abnormal Exam Abdominal: hypoactive bowel sounds, other (NG in place and clamped) - Normal Exam General: awake, alert, oriented, no acute distress Cardiovascular: regular rate Respiratory: clear bilaterally, no labored breathing Abdominal: soft, appropriately tender (at incisions), non-tender (generally) Psychiatric: normal affect Assessment and Plan (1) Ileus, postoperative Current Visit: Yes Status: Acute Assessment and plan: NG is clamped since yesterday and she is tolerating clear liquids. KUB shows dilated stomach and still some ileus pattern, but being without n/v, will keep NG clamped for now per Dr. Leon, and continue clears. She has had a little flatus, I have encouraged ambulation, and will continue the Erythromycin IV. Repeat KUB tomorrow. Hospital Course Summary Disclaimer: The visit summary below is not to be considered part of the above Progress Note.
--- NOTE | 2017-07-07 08:40 | XRay Report ---
Indication: ileus PROCEDURE: XR abdomen 2V: Encounter: Initial Comparison: July 05, 2017 Findings: Nasogastric tube and place with the tip projecting over the stomach. No free air seen. Small bowel air-fluid levels are again noted with a similar degree of small bowel distention. Some residual contrast material within the colon which is decompressed throughout. Stomach is moderately distended. Small bowel dilatation up to 4.5 cm remains. Impression: Similar appearance of the moderately dilated small bowel. .
[2017-07-07] MEDS: SALINE FLUSH 10ml SYRINGE IVF PRN ×3 (09:36→21:05)
[2017-07-07] MEDS: REFRESH CELLUVISC 1% Eye Drops 0.4ml EACH EYE PRN (09:36)
--- NOTE | 2017-07-07 10:17 | Pharmacy Consult-TPN/PPN ---
Pharmacy Consult-TPN/PPN - Laboratory Information Chemistry Turbidity < 20 (0-20) 07/07/17 09:23 Sodium 140 MEQ/L (134-144) 07/07/17 09:23 Potassium 4.0 MEQ/L (3.6-5) 07/07/17 09:23 Chloride 104 MEQ/L (98-107) 07/07/17 09:23 Carbon Dioxide 27 MEQ/L (22-30) 07/07/17 09:23 Anion Gap 9 MEQ/L (5-15) 07/07/17 09:23 BUN 21.0 MG/DL (7-17) H 07/07/17 09:23 Creatinine 0.4 MG/DL (0.7-1.2) L 07/07/17 09:23 GFR Calculation 156 07/07/17 09:23 BUN/Creatinine Ratio 53 RATIO (6-26) H 07/07/17 09:23 Glucose 142 MG/DL (65-110) H 07/07/17 09:23 Glucometer 186 mg/dL (65-110) 07/07/17 04:36 Calculated Osmolality 274 MOSM/KG (261-280) 07/07/17 09:23 Calcium 8.1 MG/DL (8.4-10.2) L 07/07/17 09:23 Phosphorus 3.1 MG/DL (2.5-4.5) 07/06/17 04:34 Magnesium 2.3 MG/DL (1.6-2.3) 07/06/17 04:34 Total Bilirubin 0.80 MG/DL (0.20-1.30) 06/30/17 11:27 Conjugated Bilirubin 0.00 MG/DL (0.00-0.30) 06/30/17 11:27 Unconjugated Bilirubin 0.40 MG/DL (0.00-1.1) 06/30/17 11:27 Icterus Index < 2 (0-7) 07/07/17 09:23 AST 34 U/L (14-36) 06/30/17 11:27 ALT 44 U/L (9-52) 06/30/17 11:27 Alkaline Phosphatase 74 U/L (38-126) 06/30/17 11:27 Total Protein 7.0 G/DL (6.3-8.2) 06/30/17 11:27 Albumin 4.0 G/DL (3.5-5.0) 06/30/17 11:27 Globulin 3.0 G/DL (2.4-3.6) 06/30/17 11:27 Albumin/Globulin Ratio 1.3 RATIO (1.1-2.2) 06/30/17 11:27 Specimen Hemolysis < 15 (0-25) 07/07/17 09:23 Intake and Output 07/06/17 07/07/17 07/08/17 06:59 06:59 06:59 Intake Total 2581 / 2581 2510.000 / 2510.000 50 / 50 Output Total 2375 / 2375 300 / 300 150 / 150 Balance 206 / 206 2210.000 / 2210.000 -100 / -100 Weight 70.6 kg 69 kg Intake: IV 2581 / 2581 2510.000 / 2510.000 50 / 50 Erythromycin 80 mg In Ns 50 ml 150 / 150 200 / 200 50 / 50 @ 100 mls/hr IV Q6HR [facility] Rx#: [id number] Fat Emulsion 20% 100 ml @ 50 100 / 100 100 / 100 mls/hr IV 1600 [facility] Rx#: [id number] Multi-Vit Infusion 10 ml Multi 2331 / 2331 -Trace Elements 1 ml Sodium Chloride Conc 80 meq Potassium Chloride Inj 40 meq In Ppn - Standard Formula 2,000 ml @ 100 mls/hr IV .[id number] [facility] Rx#: [id number] Sodium Chloride Conc 80 meq 2210.000 / 2210.000 Potassium Chloride Inj 60 meq Multi-Vit Infusion 10 ml Multi -Trace Elements 1 ml In TPN - Standard Formula 2,000 ml @ 85 mls/hr IV .Q24H [facility] Rx#: [id number] Output: Urine 300 / 300 150 / 150 Gastric Drainage 2375 / 2375 Right Nare 2375 / 2375 Other: Urine Appearance Clear Clear Urine Color Bright Yellow Light Mila Urine Odor Normal Normal Stool Color Brown Green Brown Green Stool Consistency Liquid Liquid Soft Size of Bowel Movement Moderate Smear Small # Voids 3 1 # Bowel Movements 1 1 1 - Consult Information We will continue this patient on standard TPN with added sodium chloride 80mEq and potassium chloride 60mEq. Continue to run at 85mL per hour. Thanks
--- NOTE | 2017-07-07 12:45 | OB/GYN Progress Note ---
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 Has had BM small and formed. - Objective Vital signs: Temperature 98.1 F 07/07/17 08:23 Pulse Rate 97 07/07/17 08:23 Respiratory Rate 16 07/07/17 08:23 Blood Pressure 138/77 07/07/17 08:23 Pulse Oximetry 96 07/07/17 08:23 General: alert and oriented Cardiovascular: regular rate,rhythm Respiratory: non-labored Respiratory Auscultation: clear bilaterally Abdomen: non-tender, non-distended Incision: normal, dry, intact [place] removed steri strips applied Extremities: non-tender Edema: none Laboratory Result: 07/07/17 04:09 07/07/17 09:23 Labs: UA Ur Collection Type Urine, clean catch 06/29/17 00:00 Urine Color Yellow (YELLOW) 06/29/17 00:00 Urine pH 7.0 (5.0-8.0) 06/29/17 00:00 Ur Specific [place] 1.010 (1.015-1.025) L 06/29/17 00:00 Urine Protein 2+ (NEGATIVE) A 06/29/17 00:00 Urine Glucose (UA) Negative (NEGATIVE) 06/29/17 00:00 Urine Ketones 2+ (NEGATIVE) A 06/29/17 00:00 Urine Occult Blood Trace-intact (NEGATIVE) 06/29/17 00:00 Urine Nitrate Negative (NEGATIVE) 06/29/17 00:00 Urine Bilirubin 1+ (NEGATIVE) A 06/29/17 00:00 Urine Urobilinogen 0.2 EU/DL (NORMAL) 06/29/17 00:00 Ur Leukocyte Esterase Negative (NEGATIVE) 06/29/17 00:00 - Assessment and Plan (1) Postoperative ileus Comment: Clear liquids today. NG in place clamped per Gen Surg, cont per protocol. Rec joel at least through 14 days post op due to poor nutritional status. Q&A
--- NOTE | 2017-07-07 14:57 | Progress Note ---
DATE OF SERVICE 07/07/2017 FINDINGS Mrs. Douglass was seen earlier this morning on rounds. She states that she has had some minimal flatus as well as a small bowel movement. She has tolerated her NG being clamped. She denies increasing nausea or increasing abdominal pain/discomfort. EXAM VITAL SIGNS: Afebrile, normotensive. Last recorded vitals include temperature 98.1, pulse 97, respirations 16, blood pressure 138/77. HEENT: Normocephalic. Pupils are equally round and react to light and accommodation. CHEST: Clear to auscultation bilaterally. HEART: Regular rate and rhythm. Normal S1 and S2 without gallops, murmurs or clicks. ABDOMEN: Visualization of the abdomen does not reveal it to be significantly distended. Palpation of abdomen reveals it to be soft and nontender throughout. There is no element of guarding or rebound. LABORATORY/RADIOGRAPHIC EVALUATION The patient remains to be without any element of leukocytosis. White count is 5.7. Hemoglobin is 13.6. Electrolytes are improved. The patient is on hyperalimentation/TPN. BUN is minimally elevated at 21.0. Glucose levels overall have been stable. Radiographically, the patient had a KUB and upright. She continues to have some dilated loops of small bowel. Compared to admission, however, these are improved. ASSESSMENT 71-year-old female with prolonged ileus following exploratory laparotomy, lysis of adhesions, oophorectomy. Patient remains to be without an acute surgical process/abdomen. PLAN I am concerned in regards to her ongoing dilatation of her small bowel noted on followup KUB and upright. Clinically, however, she does seem to be tolerating her NG being clamped. I will not go ahead and pull the NG today given her ongoing radiographic appearance of an ileus. Will continue with some clear liquids and clamping of her NG. Will repeat radiographic evaluation and reevaluate tomorrow. I will be leaving town tomorrow but will be checking out to the surgeon on-call. Hopefully the patient's bowel activity will continue to improve and her NG will be able to be discontinued and her diet will be able to be advanced without difficulty. KINSEY
[2017-07-07] MEDS: FAT EMULSION 20% 100 ML IV SCH (16:04)
[2017-07-07] MEDS: SODIUM CHLORIDE IV SCH (16:05)
[2017-07-07] MEDS: [UNRECOGNIZED DRUG - OTHER] IV SCH (16:05)
[2017-07-07] MEDS: MULTI VIT INFUSION IV SCH (16:05)
[2017-07-07] MEDS: POTASSIUM CHLORIDE IV SCH (16:05)
[2017-07-07] MEDS: ONDANSETRON 4 MG/2 ML INJECTION IVP PRN (21:04)
[2017-07-07] MEDS: NS FLUSH BAG 500ml IV PRN (21:19)
[2017-07-08] MEDS: ERYTHROMYCIN IV SCH (02:50)
[2017-07-08] MEDS: NS IV SCH (02:50)
[2017-07-08] MEDS: LEVOTHYROXINE 88 MCG TABLET PO SCH (06:25)
--- NOTE | 2017-07-08 08:33 | XRay Report ---
Indication: ileus PROCEDURE: XR abdomen 2V: Encounter: Initial Comparison: July 07, 2017 Findings: Lung bases are clear. Nasogastric tube remains in place. Dilated small bowel with air-fluid levels again seen with slight decrease in overall small bowel caliber. Prior colonic contrast has been evacuated. Minimal colonic gas present currently. Impression: Slight improvement in small bowel dilatation. .
[2017-07-08] MEDS: BISACODYL 10 MG SUPPOSITORY RECTALLY SCH ×2 (08:45→16:23)
[2017-07-08] MEDS ORDERED: IBUPROFEN 400 MG TABLET PO PRN (08:47)
[2017-07-08] MEDS: REFRESH CELLUVISC 1% Eye Drops 0.4ml EACH EYE PRN (08:58)
--- NOTE | 2017-07-08 09:06 | General Surgery Progress Note ---
Subjective Patient reports: feels better, tolerating liquids well (clears,but difficult to swallow around the NG), bowel movement (several liquid, states "I messed my pants 3 times"), afebrile Narrative: BP is slightly elevated and HR low 100's today, not on her home Diltiazem. Talked with Pharmacy regarding Erythromycin Diltaizem cardiac risk interaction, the Erythromycin has been DC'd, she will not get her 9am dose since she is having multiple stools and KUB is better. Diltiazem can be restarted at 9 am today, pharmacy will order dose appropriate. - Vital Signs Last Vital Signs Temp 99.5 F 07/08/17 04:00 Pulse 102 H 07/08/17 04:00 Resp 20 07/08/17 04:00 BP 147/89 H 07/08/17 04:00 Pulse Ox 95 07/08/17 04:00 - Laboratory Result Diagrams: 07/08/17 04:46 07/08/17 04:46 - Radiology KUB upright today Findings: Lung bases are clear. Nasogastric tube remains in place. Dilated small bowel with air-fluid levels again seen with slight decrease in overall small bowel caliber. Prior colonic contrast has been evacuated. Minimal colonic gas present currently. Impression: Slight improvement in small bowel dilatation. - Abnormal Exam Cardiovascular: other (slightly tachycardic today 102-105, has not had diltiazem since admission) - Normal Exam General: awake, alert, oriented Cardiovascular: regular rate Respiratory: clear bilaterally, no labored breathing Abdominal: BS normo active x4, soft, no guarding, non-tender, incision(s) (CDI Steri-stips in place) Psychiatric: normal affect Assessment and Plan (1) Ileus, postoperative Current Visit: Yes Status: Acute Plan: Discussed with Dr. Hanson, KUB looks a little better today, no longer contrast in the colon, less gastric distention and less SB distention. NG has been clamped since 07/06, no nausea. Erythromycin IV started 07/05 and in the last 12-24 hours she is having several loose and liquid stools. DC NG today, stay on clears and TPN. Will consider advancing to fulls tomorrow. Dr. Hopper present during my 2nd visit to take out the NG. Noting slight chronic elevation in temp 99's with 1 noted at 100 on the , He will order blood cultures and u/a. BP has been mildly elevated during her stay and slightly tachy today 102-105, not on her home Diltiazem. Talked with Pharmacy regarding Erythromycin Diltaizem cardiac risk interaction, the Erythromycin has been DC'd, Pharmacy states it would be safe to restart Dilatiazem, pharmacy will dose appropriately. Hospital Course Summary Disclaimer: The visit summary below is not to be considered part of the above Progress Note.
--- NOTE | 2017-07-08 09:25 | OB/GYN Progress Note ---
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 Gen Surg in room at time of rounds NG removed. - Objective Vital signs: Temperature 99.7 F 07/08/17 08:00 Pulse Rate 102 H 07/08/17 08:00 Respiratory Rate 18 07/08/17 08:00 Blood Pressure 163/88 H 07/08/17 08:00 Pulse Oximetry 100 07/08/17 08:00 General: alert and oriented Cardiovascular: regular rate,rhythm, other Tachycardic Respiratory: non-labored Respiratory Auscultation: clear bilaterally Abdomen: non-tender, non-distended Incision: normal, dry, intact Steri strips in place Extremities: non-tender Edema: none Laboratory Result: 07/08/17 04:46 07/08/17 04:46 Labs: UA Ur Collection Type Urine, clean catch 06/29/17 00:00 Urine Color Yellow (YELLOW) 06/29/17 00:00 Urine pH 7.0 (5.0-8.0) 06/29/17 00:00 Ur Specific [place] 1.010 (1.015-1.025) L 06/29/17 00:00 Urine Protein 2+ (NEGATIVE) A 06/29/17 00:00 Urine Glucose (UA) Negative (NEGATIVE) 06/29/17 00:00 Urine Ketones 2+ (NEGATIVE) A 06/29/17 00:00 Urine Occult Blood Trace-intact (NEGATIVE) 06/29/17 00:00 Urine Nitrate Negative (NEGATIVE) 06/29/17 00:00 Urine Bilirubin 1+ (NEGATIVE) A 06/29/17 00:00 Urine Urobilinogen 0.2 EU/DL (NORMAL) 06/29/17 00:00 Ur Leukocyte Esterase Negative (NEGATIVE) 06/29/17 00:00 - Assessment and Plan (1) Postoperative ileus Assessment and Plan: [place] removed, NG removed, Clear liquid diet. Appreciate Gen surg Increase HR, Increase Temp but no fever, Increase Resp rate. Could represent early infection vs discomfort with NG. Will get BC x 2 and urine CX
[2017-07-08] MEDS ORDERED: DILTIAZEM 90 MG PO ONE (09:30)
--- NOTE | 2017-07-08 09:41 | Pharmacy Consult-TPN/PPN ---
Pharmacy Consult-TPN/PPN - Laboratory Information Chemistry Turbidity < 20 (0-20) 07/08/17 04:46 Sodium 140 MEQ/L (134-144) 07/08/17 04:46 Potassium 4.3 MEQ/L (3.6-5) 07/08/17 04:46 Chloride 107 MEQ/L (98-107) 07/08/17 04:46 Carbon Dioxide 26 MEQ/L (22-30) 07/08/17 04:46 Anion Gap 7 MEQ/L (5-15) 07/08/17 04:46 BUN 17.0 MG/DL (7-17) 07/08/17 04:46 Creatinine 0.4 MG/DL (0.7-1.2) L 07/08/17 04:46 GFR Calculation 156 07/08/17 04:46 BUN/Creatinine Ratio 43 RATIO (6-26) H 07/08/17 04:46 Glucose 129 MG/DL (65-110) H 07/08/17 04:46 Glucometer 187 mg/dL (65-110) 07/08/17 03:52 Calculated Osmolality 273 MOSM/KG (261-280) 07/08/17 04:46 Calcium 7.6 MG/DL (8.4-10.2) L 07/08/17 04:46 Phosphorus 3.1 MG/DL (2.5-4.5) 07/06/17 04:34 Magnesium 2.3 MG/DL (1.6-2.3) 07/06/17 04:34 Total Bilirubin 0.80 MG/DL (0.20-1.30) 06/30/17 11:27 Conjugated Bilirubin 0.00 MG/DL (0.00-0.30) 06/30/17 11:27 Unconjugated Bilirubin 0.40 MG/DL (0.00-1.1) 06/30/17 11:27 Icterus Index < 2 (0-7) 07/08/17 04:46 AST 34 U/L (14-36) 06/30/17 11:27 ALT 44 U/L (9-52) 06/30/17 11:27 Alkaline Phosphatase 74 U/L (38-126) 06/30/17 11:27 Total Protein 7.0 G/DL (6.3-8.2) 06/30/17 11:27 Albumin 4.0 G/DL (3.5-5.0) 06/30/17 11:27 Globulin 3.0 G/DL (2.4-3.6) 06/30/17 11:27 Albumin/Globulin Ratio 1.3 RATIO (1.1-2.2) 06/30/17 11:27 Specimen Hemolysis < 15 (0-25) 07/08/17 04:46 Intake and Output 07/07/17 07/08/17 07/09/17 06:59 06:59 06:59 Intake Total 2510.000 / 2510.000 2571.667 / 2571.667 Output Total 300 / 300 300 / 300 Balance 2210.000 / 2210.000 2271.667 / 2271.667 Weight 69 kg 71.2 kg Intake: IV 2510.000 / 2510.000 2141.667 / 2141.667 Erythromycin 80 mg In Ns 50 ml 200 / 200 200 / 200 @ 100 mls/hr IV Q6HR [facility] Rx#: [id number] Fat Emulsion 20% 100 ml @ 50 100 / 100 100 / 100 mls/hr IV 1600 [facility] Rx#: [id number] Sodium Chloride Conc 80 meq 2210.000 / 2210.000 1841.667 / 1841.667 Potassium Chloride Inj 60 meq Multi-Vit Infusion 10 ml Multi -Trace Elements 1 ml In TPN - Standard Formula 2,000 ml @ 85 mls/hr IV .Q24H [facility] Rx#: [id number] Oral 430 / 430 Output: Urine 300 / 300 300 / 300 Other: Urine Appearance Clear Clear Urine Color Bright Yellow Yellow Urine Odor Normal Normal Stool Color Green Brown Stool Consistency Liquid Loose Size of Bowel Movement Smear Small # Voids 1 3 # Bowel Movements 1 3 - Consult Information Potassium has been steadily rising so will remove extra potassium in TPN. Patient also started on oral potassium. Today's formulation will be a standard TPN with extra sodium. Will continue to monitor. Thank you.
[2017-07-08] MEDS: FAT EMULSION 20% 100 ML IV SCH (16:13)
[2017-07-08] MEDS: MULTI VIT INFUSION IV SCH (16:13)
[2017-07-08] MEDS: MULTI TRACE ELEMENTS IV SCH (16:13)
[2017-07-08] MEDS: [UNRECOGNIZED DRUG - OTHER] IV SCH (16:13)
[2017-07-08] MEDS: SODIUM CHLORIDE IV SCH (16:13)
[2017-07-08] MEDS: ONDANSETRON 4 MG/2 ML INJECTION IVP PRN (22:30)
[2017-07-09] MEDS: BISACODYL 10 MG SUPPOSITORY RECTALLY SCH ×3 (00:02→18:28)
[2017-07-09] MEDS: LEVOTHYROXINE 88 MCG TABLET PO SCH (06:19)
[2017-07-09] MEDS: REFRESH CELLUVISC 1% Eye Drops 0.4ml EACH EYE PRN (06:19)
--- NOTE | 2017-07-09 06:22 | OB/GYN Progress Note ---
VENDER Progress Note - Subjective Today's Date: 07/09/17 - Objective Vital signs: Temperature 99 F 07/08/17 23:47 Pulse Rate 90 07/08/17 23:47 Respiratory Rate 22 07/08/17 23:47 Blood Pressure 125/70 07/08/17 23:47 Pulse Oximetry 95 07/08/17 23:47 General: alert and oriented Cardiovascular: regular rate,rhythm, other Respiratory: non-labored Abdomen: non-tender, non-distended Incision: normal, dry, intact Extremities: non-tender Edema: none Laboratory Result: 07/09/17 05:00 07/09/17 05:00 Labs: UA Ur Collection Type Urine, clean catch 06/29/17 00:00 Urine Color Yellow (YELLOW) 06/29/17 00:00 Urine pH 7.0 (5.0-8.0) 06/29/17 00:00 Ur Specific [place] 1.010 (1.015-1.025) L 06/29/17 00:00 Urine Protein 2+ (NEGATIVE) A 06/29/17 00:00 Urine Glucose (UA) Negative (NEGATIVE) 06/29/17 00:00 Urine Ketones 2+ (NEGATIVE) A 06/29/17 00:00 Urine Occult Blood Trace-intact (NEGATIVE) 06/29/17 00:00 Urine Nitrate Negative (NEGATIVE) 06/29/17 00:00 Urine Bilirubin 1+ (NEGATIVE) A 06/29/17 00:00 Urine Urobilinogen 0.2 EU/DL (NORMAL) 06/29/17 00:00 Ur Leukocyte Esterase Negative (NEGATIVE) 06/29/17 00:00 - Assessment and Plan (1) Postoperative ileus Assessment and Plan: Continues to progress slowly with Clear liquid diet. Has had flatus. Appreciate Gen Surg. Thrombocytopenia on lab today. Lab was an auto diff, laborer car barn to check specimen for clotting and will rerun if needed. If thrombocytopenia is actual will get IM.
--- NOTE | 2017-07-09 08:55 | General Surgery Progress Note ---
Subjective Patient reports: feels better (states she slept fairly well last night.), tolerating liquids well (clears, had brief episode of nausea last evening that passed after flatus and BM. ), voiding w/o difficulty, flatus, bowel movement Narrative: temp slightly elevated at 99. Blood culture pending, urine shows + bilirubin, no bacteria - Vital Signs Last Vital Signs Temp 97.5 F 07/09/17 08:44 Pulse 87 07/09/17 08:44 Resp 16 07/09/17 08:44 BP 125/67 07/09/17 08:44 Pulse Ox 97 07/09/17 08:44 - Laboratory Result Diagrams: 07/09/17 07:00 07/09/17 05:00 - Microbiogy Microbiology 07/08/17 12:43 Urine, Voided (Cc/notcc) Urine Culture - Preliminary Culture Initiated - Results Pending 07/08/17 10:01 Port/Picc Blood Culture - Preliminary Culture Initiated - Results Pending 07/08/17 09:58 Port/Picc Blood Culture - Preliminary Culture Initiated - Results Pending - Normal Exam General: awake, alert, oriented, no acute distress Respiratory: clear bilaterally, no labored breathing Abdominal: BS normo active x4, soft, non-tender Psychiatric: normal affect Assessment and Plan (1) Ileus, postoperative Current Visit: Yes Status: Acute Assessment and plan: Seems to be resolving, will advance to full liquids. KUB from today pending, expect it to show improvement. (2) Bilirubin in urine Current Visit: Yes Status: Acute Assessment and plan: will order LFT from this am lab draw Plan: Blood cultures pending. 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 Hospital Course Summary Disclaimer: The visit summary below is not to be considered part of the above Progress Note.
--- NOTE | 2017-07-09 11:44 | Progress Note ---
DATE OF VISIT 07/08/2017 REASON FOR VISIT Covering surgical care for Dr. Leon. OBJECTIVE Lazaro is doing better this afternoon. She has been having bowel movements and feels like her abdomen is less bloated. She denies any significant abdominal pain. OBJECTIVE GENERAL: The patient is awake, alert, in no acute distress. ABDOMEN: Soft, nontender, nondistended. IMPRESSION Postoperative ileus - improving. PLAN Her NG tube was removed earlier today. If she is still feeling well tomorrow I think she could be advanced to a full liquid diet. I think it would be best to continue TPN until her intake is more appropriate. Please see the separate electronic general surgery progress note by Carlos Shannon APRN, from earlier today. I do agree with her documentation. KINSEY
--- NOTE | 2017-07-09 14:15 | XRay Report ---
Indication: ileus PROCEDURE: XR abdomen 2V: Encounter: Initial Comparison: 07/08/2017 Findings: The included portions of the lung bases are clear. Heart size normal. No pleural effusion. There are mildly dilated loops of small bowel with a relative paucity of gas in the large bowel suggesting small bowel obstruction. Overall the degree of bowel distention appears similar to prior study. Impression: Persistent mild small bowel dilation suggesting small bowel obstruction. .
[2017-07-09] MEDS: SALINE FLUSH 10ml SYRINGE IVF PRN (14:48)
[2017-07-09] MEDS: [UNRECOGNIZED DRUG - OTHER] IV SCH (14:54)
[2017-07-09] MEDS: MULTI TRACE ELEMENTS IV SCH (14:54)
[2017-07-09] MEDS: MULTI VIT INFUSION IV SCH (14:54)
[2017-07-09] MEDS: SODIUM CHLORIDE IV SCH (14:54)
--- NOTE | 2017-07-09 15:30 | Pharmacy Consult-TPN/PPN ---
Pharmacy Consult-TPN/PPN - Laboratory Information Chemistry Turbidity < 20 (0-20) 07/09/17 07:45 Sodium 134 MEQ/L (134-144) D 07/09/17 05:00 Potassium 4.1 MEQ/L (3.6-5) 07/09/17 05:00 Chloride 101 MEQ/L (98-107) 07/09/17 05:00 Carbon Dioxide 27 MEQ/L (22-30) 07/09/17 05:00 Anion Gap 6 MEQ/L (5-15) 07/09/17 05:00 BUN 11.0 MG/DL (7-17) 07/09/17 05:00 Creatinine 0.4 MG/DL (0.7-1.2) L 07/09/17 05:00 GFR Calculation 156 07/09/17 05:00 BUN/Creatinine Ratio 28 RATIO (6-26) H 07/09/17 05:00 Glucose 170 MG/DL (65-110) H 07/09/17 05:00 Glucometer 174 mg/dL (65-110) 07/09/17 06:06 Calculated Osmolality 261 MOSM/KG (261-280) 07/09/17 05:00 Calcium 7.7 MG/DL (8.4-10.2) L 07/09/17 05:00 Phosphorus 3.1 MG/DL (2.5-4.5) 07/06/17 04:34 Magnesium 2.3 MG/DL (1.6-2.3) 07/06/17 04:34 Total Bilirubin 0.30 MG/DL (0.20-1.30) 07/09/17 07:45 Conjugated Bilirubin 0.00 MG/DL (0.00-0.30) 07/09/17 07:45 Unconjugated Bilirubin 0.10 MG/DL (0.00-1.1) 07/09/17 07:45 Icterus Index < 2 (0-7) 07/09/17 07:45 AST 24 U/L (14-36) 07/09/17 07:45 ALT 41 U/L (9-52) 07/09/17 07:45 Alkaline Phosphatase 59 U/L (38-126) 07/09/17 07:45 Total Protein 5.7 G/DL (6.3-8.2) L 07/09/17 07:45 Albumin 2.9 G/DL (3.5-5.0) L 07/09/17 07:45 Globulin 2.8 G/DL (2.4-3.6) 07/09/17 07:45 Albumin/Globulin Ratio 1.0 RATIO (1.1-2.2) L 07/09/17 07:45 Specimen Hemolysis < 15 (0-25) 07/09/17 07:45 Intake and Output 07/08/17 07/09/17 07/10/17 06:59 06:59 06:59 Intake Total 2571.667 / 2571.667 2828.333 / 2828.333 2923.083 / 2923.083 Output Total 300 / 300 1075 / 1075 650 / 650 Balance 2271.667 / 2271.667 1753.333 / 2229.342 2774.083 / 2273.083 Weight 71.2 kg 70.9 kg 70.6 kg Intake: IV 2141.667 / 2141.667 2138.333 / 2138.333 1928.083 / 1928.083 Erythromycin 80 mg In Ns 50 ml 200 / 200 @ 100 mls/hr IV Q6HR [facility] Rx#: [id number] Fat Emulsion 20% 100 ml @ 50 100 / 100 98.333 / 98.333 mls/hr IV 1600 [facility] Rx#: [id number] Sodium Chloride Conc 80 meq 1928.083 / 1928.083 Multi-Vit Infusion 10 ml Multi -Trace Elements 1 ml In TPN - Standard Formula 2,000 ml @ 85 mls/hr IV .[id number] [facility] Rx#: [id number] Sodium Chloride Conc 80 meq 1841.667 / 9963.237 0551 / 2040 Potassium Chloride Inj 60 meq Multi-Vit Infusion 10 ml Multi -Trace Elements 1 ml In TPN - Standard Formula 2,000 ml @ 85 mls/hr IV .Q24H [facility] Rx#: [id number] Oral 430 / 430 690 / 690 995 / 995 Output: Urine 300 / 300 1075 / 1075 650 / 650 Other: Urine Appearance Clear Clear Clear Urine Color Yellow Yellow Yellow Urine Odor Normal Normal Normal Stool Color Brown Green Green Stool Consistency Loose Soft Soft Formed Liquid Size of Bowel Movement Small Small Moderate # Voids 3 # Bowel Movements 3 1 - Consult Information TPN consult: day 7 no significant electrolyte changes. Will continue same TPN formula and rate, Thank you, Kandace Flynn RPh
[2017-07-09] MEDS: FAT EMULSION 20% 100 ML IV SCH (18:28)
[2017-07-09 23:26] VITALS: RESP 16
[2017-07-10] MEDS: BISACODYL 10 MG SUPPOSITORY RECTALLY SCH ×4 (01:12→23:22)
[2017-07-10] MEDS: LEVOTHYROXINE 88 MCG TABLET PO SCH (05:38)
[2017-07-10] MEDS: REFRESH CELLUVISC 1% Eye Drops 0.4ml EACH EYE PRN ×2 (05:38→15:14)
[2017-07-10] MEDS: SALINE FLUSH 10ml SYRINGE IVF PRN ×3 (08:56→20:12)
--- NOTE | 2017-07-10 11:26 | OB/GYN Progress Note ---
COMPUTER SUPPORT SPECIALIST INSTRUCTOR Post Op Progress Note - General Date: 07/10/17 Pain: controlled Voiding: voiding Nausea or Vomiting: Yes (minimal, no emesis) Ambulating: Yes Subjective Comments: Patient was admitted overnight for nausea and possible ileus vs early bowel obstruction. Her last BM was 3 days ago, but she's passing flatus. - Objective Vital Signs: Vital Signs Temp 97.7 F 07/10/17 07:03 Pulse 92 07/10/17 07:03 Resp 16 07/10/17 07:03 BP 130/75 07/10/17 07:03 Pulse Ox 95 07/10/17 07:03 Urine Output: good General: alert and oriented Respiratory: non-labored Respiratory Auscultation: clear bilaterally Abdomen: non-tender, non-distended Incision: normal Extremities: non-tender Edema: none Laboratory Results: 07/10/17 04:01 07/10/17 04:01 Labs: UA Ur Collection Type Urine, clean catch 06/29/17 00:00 Urine Color Yellow (YELLOW) 06/29/17 00:00 Urine pH 7.0 (5.0-8.0) 06/29/17 00:00 Ur Specific [place] 1.010 (1.015-1.025) L 06/29/17 00:00 Urine Protein 2+ (NEGATIVE) A 06/29/17 00:00 Urine Glucose (UA) Negative (NEGATIVE) 06/29/17 00:00 Urine Ketones 2+ (NEGATIVE) A 06/29/17 00:00 Urine Occult Blood Trace-intact (NEGATIVE) 06/29/17 00:00 Urine Nitrate Negative (NEGATIVE) 06/29/17 00:00 Urine Bilirubin 1+ (NEGATIVE) A 06/29/17 00:00 Urine Urobilinogen 0.2 EU/DL (NORMAL) 06/29/17 00:00 Ur Leukocyte Esterase Negative (NEGATIVE) 06/29/17 00:00 - Assessment (1) Ileus, postoperative Status: Acute (2) Bilirubin in urine Status: Acute - Plan Plan Comments: Pt tolerated full liquid breakfast. Still only passing loose, mucous stools. She requested Miralax, I declined. Cont increase in diet and activity per Gen Surgery.
[2017-07-10] MEDS: SODIUM CHLORIDE IV SCH (15:11)
[2017-07-10] MEDS: MULTI TRACE ELEMENTS IV SCH (15:11)
[2017-07-10] MEDS: MULTI VIT INFUSION IV SCH (15:11)
[2017-07-10] MEDS: [UNRECOGNIZED DRUG - OTHER] IV SCH (15:11)
[2017-07-10] MEDS: FAT EMULSION 20% 100 ML IV SCH (15:12)
--- NOTE | 2017-07-10 15:34 | Pharmacy Consult-TPN/PPN ---
Pharmacy Consult-TPN/PPN - Laboratory Information Chemistry Turbidity < 20 (0-20) 07/10/17 04:01 Sodium 136 MEQ/L (134-144) 07/10/17 04:01 Potassium 4.0 MEQ/L (3.6-5) 07/10/17 04:01 Chloride 100 MEQ/L (98-107) 07/10/17 04:01 Carbon Dioxide 27 MEQ/L (22-30) 07/10/17 04:01 Anion Gap 9 MEQ/L (5-15) 07/10/17 04:01 BUN 9.0 MG/DL (7-17) 07/10/17 04:01 Creatinine 0.4 MG/DL (0.7-1.2) L 07/10/17 04:01 GFR Calculation 156 07/10/17 04:01 BUN/Creatinine Ratio 23 RATIO (6-26) 07/10/17 04:01 Glucose 163 MG/DL (65-110) H 07/10/17 04:01 Glucometer 188 mg/dL (65-110) 07/10/17 12:13 Calculated Osmolality 265 MOSM/KG (261-280) 07/10/17 04:01 Calcium 7.8 MG/DL (8.4-10.2) L 07/10/17 04:01 Phosphorus 3.1 MG/DL (2.5-4.5) 07/06/17 04:34 Magnesium 2.3 MG/DL (1.6-2.3) 07/06/17 04:34 Total Bilirubin 0.30 MG/DL (0.20-1.30) 07/09/17 07:45 Conjugated Bilirubin 0.00 MG/DL (0.00-0.30) 07/09/17 07:45 Unconjugated Bilirubin 0.10 MG/DL (0.00-1.1) 07/09/17 07:45 Icterus Index < 2 (0-7) 07/10/17 04:01 AST 24 U/L (14-36) 07/09/17 07:45 ALT 41 U/L (9-52) 07/09/17 07:45 Alkaline Phosphatase 59 U/L (38-126) 07/09/17 07:45 Total Protein 5.7 G/DL (6.3-8.2) L 07/09/17 07:45 Albumin 2.9 G/DL (3.5-5.0) L 07/09/17 07:45 Globulin 2.8 G/DL (2.4-3.6) 07/09/17 07:45 Albumin/Globulin Ratio 1.0 RATIO (1.1-2.2) L 07/09/17 07:45 Specimen Hemolysis < 15 (0-25) 07/10/17 04:01 Intake and Output 07/09/17 07/10/17 07/11/17 06:59 06:59 06:59 Intake Total 2828.333 / 2828.333 3923.083 / 3923.083 2381 / 2381 Output Total 1075 / 1075 1700 / 1700 300 / 300 Balance 1753.333 / 1986.907 7568.083 / 2223.083 2080 / 2080 Weight 70.9 kg 70.6 kg 70.8 kg Intake: IV 2138.333 / 2138.333 2028.083 / 2028.083 2030 Fat Emulsion 20% 100 ml @ 50 98.333 / 98.333 100 / 100 mls/hr IV 1600 [facility] Rx#: [id number] Sodium Chloride Conc 80 meq 1928.083 / 6134.456 0162 / 2031 Multi-Vit Infusion 10 ml Multi -Trace Elements 1 ml In TPN - Standard Formula 2,000 ml @ 85 mls/hr IV .[id number] [facility] Rx#: [id number] Sodium Chloride Conc 80 meq 0 / 2040 Potassium Chloride Inj 60 meq Multi-Vit Infusion 10 ml Multi -Trace Elements 1 ml In TPN - Standard Formula 2,000 ml @ 85 mls/hr IV .Q24H [facility] Rx#: [id number] Oral 690 / 690 1895 / 1895 350 / 350 Output: Urine 1075 / 1075 1700 / 1700 300 / 300 Other: Urine Appearance Clear Clear Clear Urine Color Yellow Yellow Yellow Urine Odor Normal Normal Stool Color Green Green Stool Consistency Soft Soft Formed Liquid Size of Bowel Movement Small Moderate # Voids 2 1 # Bowel Movements 1 - Consult Information TPN consult: Electrolytes stable. No changes made to TPN formula. Continue same TPN formula and rate. Thank you, Kandace Flynn, [facility]
[2017-07-11] MEDS: LEVOTHYROXINE 88 MCG TABLET PO SCH (05:31)
--- NOTE | 2017-07-11 06:55 | Progress Note ---
DATE OF VISIT 07/10/2017 REASON FOR VISIT Covering surgical care for Dr. Leon. SUBJECTIVE Lazaro is doing well. She feels like she is still making slow but steady progress. She has been drinking her full liquids and tolerating them well but she does not feel that she has enough of an appetite to have anything for dinner after breakfast and lunch. OBJECTIVE Afebrile with stable vitals on room air. GENERAL: The patient is awake, alert, in no acute distress. ABDOMEN: Soft, nontender, minimally distended. IMPRESSION Prolonged postoperative ileus - this appears to be slowly resolving. PLAN 1. Continue full liquid diet today. 2. Continue TPN since she is not able to achieve a normal caloric intake with full liquids. 3. Dr. Leon will be returning tomorrow and can consider diet advance at that point in time. KINSEY
--- NOTE | 2017-07-11 07:27 | Pharmacy Consult-TPN/PPN ---
Pharmacy Consult-TPN/PPN - Laboratory Information Chemistry Turbidity < 20 (0-20) 07/11/17 04:12 Sodium 135 MEQ/L (134-144) 07/11/17 04:12 Potassium 4.2 MEQ/L (3.6-5) 07/11/17 04:12 Chloride 101 MEQ/L (98-107) 07/11/17 04:12 Carbon Dioxide 25 MEQ/L (22-30) 07/11/17 04:12 Anion Gap 9 MEQ/L (5-15) 07/11/17 04:12 BUN 9.0 MG/DL (7-17) 07/11/17 04:12 Creatinine 0.4 MG/DL (0.7-1.2) L 07/11/17 04:12 GFR Calculation 156 07/11/17 04:12 BUN/Creatinine Ratio 23 RATIO (6-26) 07/11/17 04:12 Glucose 149 MG/DL (65-110) H 07/11/17 04:12 Glucometer 184 mg/dL (65-110) 07/11/17 05:31 Calculated Osmolality 262 MOSM/KG (261-280) 07/11/17 04:12 Calcium 7.9 MG/DL (8.4-10.2) L 07/11/17 04:12 Phosphorus 3.1 MG/DL (2.5-4.5) 07/06/17 04:34 Magnesium 2.3 MG/DL (1.6-2.3) 07/06/17 04:34 Total Bilirubin 0.30 MG/DL (0.20-1.30) 07/09/17 07:45 Conjugated Bilirubin 0.00 MG/DL (0.00-0.30) 07/09/17 07:45 Unconjugated Bilirubin 0.10 MG/DL (0.00-1.1) 07/09/17 07:45 Icterus Index < 2 (0-7) 07/11/17 04:12 AST 24 U/L (14-36) 07/09/17 07:45 ALT 41 U/L (9-52) 07/09/17 07:45 Alkaline Phosphatase 59 U/L (38-126) 07/09/17 07:45 Total Protein 5.7 G/DL (6.3-8.2) L 07/09/17 07:45 Albumin 2.9 G/DL (3.5-5.0) L 07/09/17 07:45 Globulin 2.8 G/DL (2.4-3.6) 07/09/17 07:45 Albumin/Globulin Ratio 1.0 RATIO (1.1-2.2) L 07/09/17 07:45 Specimen Hemolysis 23 (0-25) 07/11/17 04:12 Intake and Output 07/10/17 07/11/17 07/12/17 06:59 06:59 06:59 Intake Total 3923.083 / 3923.083 2881 / 2881 Output Total 1700 / 1700 2200 / 2200 Balance 2223.083 / 2223.083 681 / 681 Weight 70.6 kg 70.8 kg Intake: IV 2027.083 / 2027.083 2130 / 2130 Fat Emulsion 20% 100 ml @ 50 100 / 100 100 / 100 mls/hr IV 1600 [facility] Rx#: [id number] Sodium Chloride Conc 80 meq 1927.083 / 1830.910 3999 / 2030 Multi-Vit Infusion 10 ml Multi -Trace Elements 1 ml In TPN - Standard Formula 2,000 ml @ 85 mls/hr IV .[id number] [facility] Rx#: [id number] Oral 1895 / 1895 750 / 750 Output: Urine 1700 / 1700 2200 / 2200 Other: Urine Appearance Clear Clear Urine Color Yellow Yellow Urine Odor Normal Normal Stool Color Green Green Stool Consistency Soft Angélica Size of Bowel Movement Moderate Moderate # Voids 2 3 - Consult Information Srinivas wnl. Standard TPN with 80meq extra of sodium chloride to run at 85 mls/hr (same formula). Thank you.
[2017-07-11] MEDS: BISACODYL 10 MG SUPPOSITORY RECTALLY SCH ×2 (08:41→15:56)
--- NOTE | 2017-07-11 09:16 | Progress Note ---
DATE OF VISIT 07/09/2017 REASON FOR VISIT Covering surgical care for Dr. Leon. ANTOINETTE Willis has done well with the clear liquid diet. She is having a full liquid diet that was started by Carlos Shannon APRN and is also tolerating it without problems. She did have some nausea last night that resolved after a bowel movement. OBJECTIVE VITAL SIGNS: Afebrile with stable vitals on room air. GENERAL: The patient is awake, alert, in no acute distress. ABDOMEN: Soft, nontender, nondistended. Her lower midline incision appears to be healing well. LABORATORY DATA Liver enzymes this morning were normal. IMPRESSION 1. Postoperative ileus - improving. 2. Bilirubin in urine - LFTs okay. PLAN 1. Continue full liquids through the weekend. 2. Dr. Leon will be returning on Tuesday. [facility]ITAL[facility]
--- NOTE | 2017-07-11 09:19 | OB/GYN Progress Note ---
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 Denies pain or bloating, feels much improved. - Objective Vital signs: Temperature 97.6 F 07/11/17 07:34 Pulse Rate 86 07/11/17 07:34 Respiratory Rate 16 07/11/17 07:34 Blood Pressure 133/72 07/11/17 07:34 Pulse Oximetry 96 07/11/17 07:34 General: alert and oriented Cardiovascular: regular rate,rhythm, other Respiratory: non-labored Respiratory Auscultation: clear bilaterally Abdomen: non-tender, non-distended Incision: normal, dry, intact Extremities: non-tender Edema: none Laboratory Result: 07/11/17 04:12 07/11/17 04:12 Labs: UA Ur Collection Type Urine, clean catch 06/29/17 00:00 Urine Color Yellow (YELLOW) 06/29/17 00:00 Urine pH 7.0 (5.0-8.0) 06/29/17 00:00 Ur Specific [place] 1.010 (1.015-1.025) L 06/29/17 00:00 Urine Protein 2+ (NEGATIVE) A 06/29/17 00:00 Urine Glucose (UA) Negative (NEGATIVE) 06/29/17 00:00 Urine Ketones 2+ (NEGATIVE) A 06/29/17 00:00 Urine Occult Blood Trace-intact (NEGATIVE) 06/29/17 00:00 Urine Nitrate Negative (NEGATIVE) 06/29/17 00:00 Urine Bilirubin 1+ (NEGATIVE) A 06/29/17 00:00 Urine Urobilinogen 0.2 EU/DL (NORMAL) 06/29/17 00:00 Ur Leukocyte Esterase Negative (NEGATIVE) 06/29/17 00:00 - Assessment and Plan (1) Postoperative ileus Assessment and Plan: Continue with diet per Gen Surg, Continue TPN until for now. Blood CX negative x 2, Urine CX mixed daniela. Continue current cares.
[2017-07-11] MEDS: REFRESH CELLUVISC 1% Eye Drops 0.4ml EACH EYE PRN (11:16)
[2017-07-11] MEDS: SODIUM CHLORIDE IV SCH (15:55)
[2017-07-11] MEDS: [UNRECOGNIZED DRUG - OTHER] IV SCH (15:55)
[2017-07-11] MEDS: MULTI TRACE ELEMENTS IV SCH (15:55)
[2017-07-11] MEDS: MULTI VIT INFUSION IV SCH (15:55)
[2017-07-11] MEDS: FAT EMULSION 20% 100 ML IV SCH (15:57)
--- NOTE | 2017-07-11 17:51 | General Surgery Progress Note ---
Subjective Patient reports: feels better (she ate 1/2 of a turkey sandwich this afternoon without difficulty), flatus (states passing more flatus), bowel movement ( usually small to moderate in size, "teofilo", brown/green) - Vital Signs Last Vital Signs Temp 97.8 F 07/11/17 15:32 Pulse 92 07/11/17 15:32 Resp 16 07/11/17 15:32 BP 135/71 07/11/17 15:32 Pulse Ox 96 07/11/17 15:32 - Laboratory Result Diagrams: 07/11/17 04:12 07/11/17 04:12 Laboratory Tests 07/09/17 07:45 Total Bilirubin 0.30 Conjugated Bilirubin 0.00 Unconjugated Bilirubin 0.10 AST 24 ALT 41 Alkaline Phosphatase 59 - Microbiogy Microbiology 07/08/17 10:01 Port/Picc Blood Culture - Preliminary No Growth After 3 Days 07/08/17 09:58 Port/Picc Blood Culture - Preliminary No Growth After 3 Days - Normal Exam General: awake, alert, no acute distress Cardiovascular: regular rate Respiratory: no labored breathing Abdominal: BS normo active x4, soft, non-tender Psychiatric: normal affect Assessment and Plan (1) Ileus, postoperative Current Visit: Yes Status: Acute Assessment and plan: She has been doing well with Full liquids most of the weekend, advanced to Regular this afternoon and so far is doing well. TPN already made, will continue that for now, Pharmacy is notified that this is the last bag unless told otherwise. Q8H Dulcolax suppositories are DC'd , she is having small to moderate stools. (2) Bilirubin in urine Current Visit: Yes Status: Acute Assessment and plan: Serum LFT's from 07/09 are all normal Hospital Course Summary Disclaimer: The visit summary below is not to be considered part of the above Progress Note.
--- NOTE | 2017-07-11 18:11 | Progress Note ---
DATE 07/11/2017 FINDINGS Mrs. Douglass was seen this evening on rounds. She denied any element of nausea or vomiting. Her diet has been recently advanced to a regular diet. She states that she is passing gas/flatus. She has had two liquidy stools earlier today per her report. PHYSICAL EXAM VITAL SIGNS: Afebrile, normotensive. Last recorded vitals include temperature 97.8, pulse 92, respirations 16, blood pressure 135/71, SAO2 96% on room air. CHEST: Clear to auscultation bilaterally. HEART: Regular rate and rhythm. Normal S1 and S2 without gallops, murmurs or clicks. ABDOMEN: Palpation of the abdomen revealed it to be less distended today. There was no evidence for guarding or rebound. LABORATORY/RADIOGRAPHIC EVALUATION The patient had a CBC today that was unremarkable. White count was 8.0. Hemoglobin was stable 11.8. BMP obtained and found to be without marked abnormalities. ASSESSMENT 71-year-old female status post exploratory laparotomy, extensive adhesiolysis, oophorectomy, development of postoperative ileus which appears to have resolved at this time from a clinical standpoint. PLAN Will continue with current care. When current bag of TPN is finished will DC TPN at that time. If tomorrow she is tolerating a regular diet without difficulty and has had no onset of nausea or vomiting, I do believe that perhaps tomorrow afternoon/evening the patient could be discharged to home. I am pleased with the patient's progress at this time. KINSEY
[2017-07-12] MEDS: LEVOTHYROXINE 88 MCG TABLET PO SCH (05:32)
[2017-07-12 08:46] VITALS: BP 126/74; PULSE 94; TEMP 97.8; O2SAT 97
--- NOTE | 2017-07-12 10:25 | OB/GYN Progress Note ---
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 Tolerated full diet last night and this AM. - Objective Vital signs: Temperature 97.8 F 07/12/17 08:00 Pulse Rate 94 07/12/17 08:00 Respiratory Rate 16 07/12/17 08:00 Blood Pressure 126/74 07/12/17 08:00 Pulse Oximetry 97 07/12/17 08:00 General: alert and oriented Cardiovascular: regular rate,rhythm, other Respiratory: non-labored Respiratory Auscultation: clear bilaterally Abdomen: non-tender, non-distended Incision: normal, dry, intact Extremities: non-tender Edema: none Laboratory Result: 07/12/17 04:02 07/12/17 04:02 Labs: UA Ur Collection Type Urine, clean catch 06/29/17 00:00 Urine Color Yellow (YELLOW) 06/29/17 00:00 Urine pH 7.0 (5.0-8.0) 06/29/17 00:00 Ur Specific [place] 1.010 (1.015-1.025) L 06/29/17 00:00 Urine Protein 2+ (NEGATIVE) A 06/29/17 00:00 Urine Glucose (UA) Negative (NEGATIVE) 06/29/17 00:00 Urine Ketones 2+ (NEGATIVE) A 06/29/17 00:00 Urine Occult Blood Trace-intact (NEGATIVE) 06/29/17 00:00 Urine Nitrate Negative (NEGATIVE) 06/29/17 00:00 Urine Bilirubin 1+ (NEGATIVE) A 06/29/17 00:00 Urine Urobilinogen 0.2 EU/DL (NORMAL) 06/29/17 00:00 Ur Leukocyte Esterase Negative (NEGATIVE) 06/29/17 00:00 - Assessment and Plan (1) Postoperative ileus Assessment and Plan: Has done well, Diet has increased to Full and she is tolerating well. Will discuss with Gen Surg about DC of Picc line and TPN and possible dismissal to home.
--- NOTE | 2017-07-12 10:31 | Discharge Summary ---
DC Information/Hospital Course Date of admission: 06/29/17 19:29 Anticipated date of discharge: 07/12/17 Attending Physician: Saulo Hopper DO Primary care physician: Louis Garcia DO Consults: 06/30/17 11:10 Physician Consult [CONS] Routine Consulting Provider: Eloy Leon Reason For Exam: POSTOP ILEUS Ordering Provider has Notified Client Project Coordinator: Yes (1) Ileus, postoperative Start Date: 06/29/17 Status: Acute (2) Bilirubin in urine Status: Acute - Hospital Course Hospital Course: 07/12/17 10:27 Pt was addmitted from ED with abdominal distention and N/V after a Laparoscopic RSO and Lysis of adhesion. She had a CT at that time which was read as Illeus possible early SBO. She was admitted NPO and with pain control. She was evaluated and found not to have a surgical abdomn but the over read on the CT from the night before stated high grade SBO. General surgery was consulted at this time due to the discrepancy in the report and possible need for surgery. Pt remained to have nonsurgical abdomen on serial abdominal exam and X-rays. She continued to have significant N/V and was unable to tolerate clear liquids. On Hospital day 5 07/03/17he was started on PPN. On Hospital day 7 she had NG palced and Picc line placed for TPN. on 07/08/17 the NG was discontinued. Her diet was advanced slowwly until 07/11/17 when she was tolerating regular diet 07/12/17 10:32 07/12/17 10:35 07/12/17 10:37 Imaging Studies: CT, KUB Laboratory: Labs from last 24 hours 07/12/17 07/12/17 07/12/17 05:31 04:02 04:02 WBC 8.7 RBC 3.87 L Hgb 11.9 L Hct 36.6 MCV 94.6 MCH 30.7 MCHC 32.5 RDW Std Deviation 45.1 Plt Count 263 MPV 10.9 Immature Gran % (Auto) Not performed Neut % (Auto) Not performed Lymph % (Auto) Not performed [place] % (Auto) Not performed Eos % (Auto) Not performed Baso % (Auto) Not performed Neut # (Auto) Not performed Lymph # (Auto) Not performed [place] # (Auto) Not performed Eos # (Auto) Not performed Baso # (Auto) Not performed Abs Immat Gran (auto) Not performed Neutrophils % (Manual) 60.0 Band Neutrophils % 7.0 H Lymphocytes % (Manual) 21.0 L Monocytes % (Manual) 10.0 H Basophils % (Manual) 1.0 Metamyelocytes % 1.0 H Neutrophils # (Manual) 5.2 Band Neutrophils # 0.6 Lymphocytes # (Manual) 1.8 Monocytes # (Manual) 0.9 H Basophils # (Manual) 0.1 Metamyelocytes # 0.1 RBC Morph Comment Normal Turbidity < 20 Sodium 135 Potassium 4.0 Chloride 101 Carbon Dioxide 25 Anion Gap 9 BUN 11.0 Creatinine 0.5 L GFR Calculation 121 BUN/Creatinine Ratio 22 Glucose 129 H Glucometer 189 Calculated Osmolality 261 Calcium 8.1 L Icterus Index < 2 Specimen Hemolysis < 15 07/12/17 07/11/17 07/11/17 00:20 18:25 12:23 WBC RBC Hgb Hct MCV MCH MCHC RDW Std Deviation Plt Count MPV Immature Gran % (Auto) Neut % (Auto) Lymph % (Auto) [place] % (Auto) Eos % (Auto) Baso % (Auto) Neut # (Auto) Lymph # (Auto) [place] # (Auto) Eos # (Auto) Baso # (Auto) Abs Immat Gran (auto) Neutrophils % (Manual) Band Neutrophils % Lymphocytes % (Manual) Monocytes % (Manual) Basophils % (Manual) Metamyelocytes % Neutrophils # (Manual) Band Neutrophils # Lymphocytes # (Manual) Monocytes # (Manual) Basophils # (Manual) Metamyelocytes # RBC Morph Comment Turbidity Sodium Potassium Chloride Carbon Dioxide Anion Gap BUN Creatinine GFR Calculation BUN/Creatinine Ratio Glucose Glucometer 194 179 160 Calculated Osmolality Calcium Icterus Index Specimen Hemolysis 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 Exam Vital signs: Temperature 97.8 F 07/12/17 08:00 Pulse Rate 94 07/12/17 08:00 Respiratory Rate 16 07/12/17 08:00 Blood Pressure 126/74 07/12/17 08:00 Pulse Oximetry 97 07/12/17 08:00 - Constitutional Present: no acute distress - Routine Neck Exam Present: supple, full ROM - Routine Cardiovascular Exam Present: RRR - Routine Abdominal Exam Present: soft, normoactive bowel sounds, non distended, non tender - Routine Extremities Exam Extremities: Present: non tender, full ROM - Routine Neurological Exam Present: alert, oriented X3 - Routine Skin Exam Present: intact - Routine Psychiatric Exam Present: normal affect Discharge Plan - Med Rec/Dispo Referrals/Follow Up: Saulo Hopper DO [Physician] - [place] Instructions: Ileus (DC) Prescriptions: New DiltiaZEM CD [Cardizem Cd] 180 mg PO HS cap Continue hydroCHLOROthiazide [Hydrochlorothiazide] 25 mg PO DAILY #0 raNITIdine HCl [Zantac 75] 150 mg PO DAILY Cholecalciferol (Vitamin D3) [Vitamin D3] 1,000 units PO DAILY Aspirin [Adult Aspirin Regimen] 81 mg PO DAILY Oxycodone HCl 5 - 10 mg PO Q4H Levothyroxine Sodium 88 mcg PO ACB #0 Loratadine [Claritin] 10 mg PO ACB [place]-3/Dha/Epa/Fish Oil [Fish Oil 1,000 mg Softgel] 1 each PO DAILY Multi-Vitamin Plain [Theragran] 1 tab PO DAILY Lactobacillus Acidophilus [Probiotic] 1 each PO DAILY Promethazine HCl 25 mg PO PRN PRN PRN Reason: Nausea &/Or Vomiting Discontinued dilTIAZem HCl [Cardizem Cd] 180 mg PO HS #0 Potassium Chloride 2 tab PO TID Ibuprofen [Motrin] 1 tab PO Q4H PRN #30 tab PRN Reason: Pain No Action Acetaminophen [Tylenol] 500 mg PO PRN PRN PRN Reason: Pain - Disposition 01 Discharged Home, Self-Care - Dismissal Complete Discharge Instructions are:: Complete
[2017-07-12] MEDS ORDERED: NEOMYCIN/POLYMYXIN/BACITRACIN OINT PACKET TP ONE (11:35)
== END 2017-07-12 12:53 | disposition home or self-care (01) | DRG 390 ==
LOC: SRG 22:10 → ED 22:10 → SRG 06-29 01:25
PROVIDERS: ADMIT Obstetrics & Gynecology; ATTEND Obstetrics & Gynecology